=== PATIENT | female | born 1950 | race Caucasian/White ===

== ENCOUNTER 2018-01-13 11:34 | Emergency (ER) | payer BC, MEDICARE ==
--- NOTE | 2018-01-13 12:01 | UC ---
UC General HPI - HPI Summary HPI Summary: 67 yo female presents with weakness, dizziness, dysphagia, nausea, and vomiting over the last year, but worsening over the last 2 weeks. She tells me that within the last 2 weeks she feels that she cannot eat anything because it will get stuck in her throat and she will vomit it back up. Therefore she tells me she has lost >10lbs within the last 2 weeks due to not eating and vomiting. She also feels weak and dizzy with any activity. Reports feeling feverish and having an elevated temperature, but has not taken it with a thermometer. Denies SOB, chest pain, diarrhea, constipation, or dysuria. - History of Current Complaint Stated Complaint: FB IN THROAT NAUSEA BRUISING ON ARM RASH Time Seen by Provider: 01/13/18 12:00 Hx Obtained From: Patient Onset/Duration: Gradual Onset - Allergy/Home Medications Allergies/Adverse Reactions: Allergies Allergy/AdvReac Type Severity Reaction Status Date / Time No Known Allergies Allergy Verified 01/13/18 12:02 PMH/Surg Hx/FS Hx/Imm Hx Endocrine History: Dyslipidemia Respiratory History: COPD - Surgical History Surgical History: Yes Surgery Procedure, Year, and Place: HYSTERECTOMY, CHOLECYSTECTOMY - Family History Known Family History: Positive: Hypertension - Social History Lives: With Family Alcohol Use: Daily Alcohol Amount: 2 GLASSES WINE/DAY Substance Use Type: None Smoking Status (MU): Former Smoker - Immunization History Most Recent Tetanus Shot: UNSURE ( OF 09/06/15) Review of Systems Constitutional: Fever Skin: Negative Eyes: Negative ENT: Negative Respiratory: Negative Cardiovascular: Negative Gastrointestinal: Vomiting, Nausea, Other - Difficulty swallowing Neurovascular: Negative Musculoskeletal: Negative Neurological: Weakness Psychological: Negative All Other Systems Reviewed And Are Negative: Yes Physical Exam - Summary Physical Exam Summary: GENERAL: NAD. WDWN. No pain distress. SKIN: No rashes, sores, or open wounds. HEENT: Head: AT/NC Eyes: PERRLA. EOM intact. Conjunctiva clear without inflammation or discharge. Ears: Hearing grossly normal. TMs intact, no bulging, erythema, or edema. Nose: Nasal mucosa pink and moist. NTTP maxillary and frontal sinus. Throat: Posterior oropharynx without exudates, erythema, or tonsillar enlargement. Uvula midline. NECK: Supple. Nontender. No lymphadenopathy. CHEST: CTAB. No r/r/w. No accessory muscle use. Breathing comfortably and in no distress. CV: RRR. Without m/r/g. Pulses intact. Brisk cap refill. ABDOMEN: Soft. NTTP. No distention or guarding. No CVA tenderness. Bowel sounds present NEURO: Alert. CN II-XII grossly intact. PSYCH: Age appropriate behavior. Triage Information Reviewed: Yes Vital Signs: Vital Signs: Temp Pulse Resp BP Pulse Ox 98.7 F 47 18 146/91 97 01/13/18 11:51 01/13/18 11:51 01/13/18 11:51 01/13/18 11:51 01/13/18 11:51 Vital Signs Reviewed: Yes Course/Dx - Course Course Of Treatment: Prior to EKG, pt's hr manually was 45bpm. During EKG pt became anixous. EKG with 111bpm sinus tach with irregular rate, PACs, borderline prolonged QT, No ST elevations as read by Dr. Carter. She is having multiple instances of ectopy and PACs with prolonged QT - these findings are concerning for an electrolyte abnormality. I have advised pt to seek further evaluation in the ED with transfer via ambulance. Her and her were agreeable to this. An IV was started and NS begun. Left in stable condition via ambulance. Report called to Raymon FLYNN at 1245 in the ED. - Differential Dx - Multi-Symptom Provider Diagnoses: Abnormal EKG. Vomiting. Dysphagia Discharge - Sign-Out/Discharge Documenting (check all that apply): Patient Departure - Discharge Plan Condition: Stable Disposition: TRANS HIGHER LVL OF CARE FAC Referrals: No Primary Care Phys,NOPCP [Primary Care Provider] - - Billing Disposition and Condition Condition: STABLE Disposition: Trans Higher Lvl of Care Fac
[2018-01-13 12:02] VITALS: BP 146/91
[2018-01-13] MEDS ORDERED: NS 0.9% 1000 ML* 1,000 ML IV ONE (12:37)
== END 2018-01-13 13:05 | disposition short-term general hospital (02) ==
LOC: UCEAST 11:34
DX: R11.2 Nausea with vomiting, unspecified (principal); R13.10 Dysphagia, unspecified; R94.31 Abnormal electrocardiogram [ECG] [EKG]; J44.9 Chronic obstructive pulmonary disease, unspecified; R53.1 Weakness; R42 Dizziness and giddiness; R50.9 Fever, unspecified; Z87.891 Personal history of nicotine dependence
CPT/HCPCS: 93005; 96360; 99213; G0463

== ENCOUNTER 2018-01-13 13:27 | Observation (INO) | payer MEDICARE ==
[2018-01-13] MEDS ORDERED: ALPRAZolam TAB* 0.25 MG PO ONE (14:03)
--- NOTE | 2018-01-13 14:05 | ED ---
Complex/Multi-Sys Presentation - HPI Summary HPI Summary: This is Cj Attrobert documenting for attending Abdullahi Hogue This is Cj Griggs documenting for attending Abdullahi Smalls MD. Pt YESSENIA is a 67 y/o F c/o throat problems onset ~1 year ago. Assoc Sx: Acid reflux, inability to eat, depression, lightheaded, dizziness, SAMUEL, changes in sleep. Denies: CP and tightness. Has not eaten anything in the last 3 weeks and has lost ~30 lbs. Pt notes that it feels like there is a growth in her throat. Pt went to Urgent care before and was sent here with concerns about her heart. - History Of Current Complaint Chief Complaint: EDGeneral Time Seen by Provider: 01/13/18 13:58 Hx Obtained From: Patient, Family/Business Writer Onset/Duration: Gradual Onset, Lasting Weeks, Still Present Timing: Constant Associated Signs And Symptoms: Positive: Dizziness, Headache, Decreased Oral Intake - both solid/liquid, Other - acid reflux, lightheadedness.. Negative: Chest Pain - Allergies/Home Medications Allergies/Adverse Reactions: Allergies Allergy/AdvReac Type Severity Reaction Status Date / Time No Known Allergies Allergy Verified 01/13/18 12:02 Home Medications: Home Medications Ibuprofen TAB* [Advil TAB*] 200 mg PO Q6H PRN 01/13/18 [History Confirmed ] PMH/Surg Hx/FS Hx/Imm Hx Respiratory History: Reports: Hx Chronic Obstructive Pulmonary Disease (COPD) GI History: Reports: Hx Ulcer - stomach - Surgical History Surgery Procedure, Year, and Place: HYSTERECTOMY, CHOLECYSTECTOMY Infectious Disease History: No Infectious Disease History: Reports: Hx Hepatitis Denies: Traveled Outside the [place] in Last 30 Days - Family History Known Family History: Positive: Hypertension - Social History Occupation: Retired Lives: With Family Alcohol Use: Weekly Alcohol Amount: 2 GLASSES WINE/DAY Substance Use Type: Reports: None Smoking Status (MU): Former Smoker Review of Systems Positive: Other - inability to eat solid food Positive: Other - acid reflux Negative: Chest Pain, Other - chest tightness Positive: Headache Positive: Depressed All Other Systems Reviewed And Are Negative: Yes Physical Exam - Summary Physical Exam Summary: Constitutional: Well-developed, Well-nourished, Alert. (-) Distressed Skin: Warm, Dry HENT: Normocephalic; Atraumatic; resists exam of thyroid Eyes: Conjunctiva normal Neck: Musculoskeletal ROM normal neck. (-) JVD, (-) Stridor, (-) Tracheal deviation Cardio: Rhythm regular, rate normal, Heart sounds normal; Intact distal pulses; The pedal pulses are 2+ and symmetric. Radial pulses are 2+ and symmetric. (-) Murmur Pulmonary/Chest wall: Effort normal. (-) Respiratory distress, (-) Wheezes, (-) Rales Abd: Soft, (-), epigastric tenderness, (-) Distension, (-) Guarding, (-) Rebound Musculoskeletal: (-) Edema Lymph: (-) Cervical adenopathy Neuro: Alert, Oriented x3 Psych: Mood and affect Normal Triage Information Reviewed: Yes Vital Signs On Initial Exam: Initial Vitals Temp Pulse Resp BP Pulse Ox 98.1 F 115 16 138/97 96 01/13/18 13:29 01/13/18 13:29 01/13/18 13:29 01/13/18 13:29 01/13/18 13:29 Vital Signs Reviewed: Yes Diagnostics - Vital Signs Vital Signs Temp Pulse Resp BP Pulse Ox 01/13/18 13:29 98.1 F 115 16 138/97 96 - Laboratory Result Diagrams: 01/13/18 14:16 01/13/18 14:16 Lab Statement: Any lab studies that have been ordered have been reviewed, and results considered in the medical decision making process. - Radiology CXR Xray Interpretation: No Acute Changes - IMPRESSION: NORMAL CHEST. Radiology Interpretation Completed By: Radiologist Soft tissue neck XR Xray Interpretation: Positive (See Comments) - IMPRESSION: NO PLAIN RADIOGRAPHIC ABNORMALITIES OF THE SOFT TISSUES OF THE NECK. OSTEOARTHRITIS OF THE CERVICAL SPINE. Radiology Interpretation Completed By: Radiologist - EKG 1414 Cardiac Rate: Tachycardia - [address] Segment: Normal Discharge - Sign-Out/Discharge Documenting (check all that apply): Patient Departure - Discharge Plan Condition: Stable Disposition: ADMITTED TO [facility] Referrals: No Primary Care Phys,NOPCP [Primary Care Provider] - [facility] PHYSICIAN REFERRAL [Outside]
[2018-01-13] MEDS ORDERED: Ondansetron INJ* 2 MG/ML VIAL ONE (14:24)
[2018-01-13] MEDS ORDERED: Ondansetron INJ* 2 MG/ML VIAL IV ONE (14:48)
--- NOTE | 2018-01-13 14:48 | RAD ---
INDICATION: Globus sensation COMPARISON: June 01, 2004 TECHNIQUE: PA and lateral dual-energy views were obtained. FINDINGS: Bones/Soft Tissues: There are no acute bony findings. Cardiomediastinal: The cardiomediastinal silhouette is normal. Lungs: There are no infiltrates. Pleura: There are no pleural effusions. Other: None IMPRESSION: NORMAL CHEST.
--- NOTE | 2018-01-13 14:50 | RAD ---
INDICATION: Clinical presentation COMPARISON: None TECHNIQUE: 2 views the neck were obtained with soft tissue technique FINDINGS: There is degenerative change of the cervical spine at C5-C6 with disc space narrowing, marginal osteophyte formation, uncinate process spurring. There is a 2 mm anterolisthesis of C4-C5 which is likely on a degenerative basis. The prevertebral soft tissues and airway have a normal plain radiographic appearance. IMPRESSION: NO PLAIN RADIOGRAPHIC ABNORMALITIES OF THE SOFT TISSUES OF THE NECK. OSTEOARTHRITIS OF THE CERVICAL SPINE.
[2018-01-13 15:00] LABS: Hematocrit 44 % (35-47); Hemoglobin 15.7 g/dl (12.0-16.0); Mean Corpuscular HGB Conc 36 g/dl (31-36); Mean Corpuscular Hemoglobin 36 pg (27-31); Mean Corpuscular Volume 99 fL (80-97); Mean Platelet Volume 8.6 um3 (7.4-10.4); Platelet Count 296 10^3/ul (150-450); Red Blood Count 4.43 10^6/ul (4.00-5.40); Red Cell Distribution Width 14 % (10.5-15)
[2018-01-13] MEDS ORDERED: NS 0.9% 1000 ML* 1,000 ML IV ONE (16:00)
[2018-01-13] MEDS ORDERED: Metoclopramide IV* 5 MG/ML 2 ML VIAL IV SLOW PU ONE (16:23)
[2018-01-13] MEDS ORDERED: Iohexol 300* (CONTRAST) 10 ML SDV IV ONE (18:35)
[2018-01-13] MEDS ORDERED: Magnesium Sulfate IV* 2 GM in NS 0.9% 100 ML* 100 ML IVPB ONE (20:27)
[2018-01-13] MEDS: KCL 20 MEQ/100 ML IVPREMIX* 20 MEQ/100 ML BAG IV SCH (20:33)
[2018-01-13] MEDS: Heparin VIAL(*) 5000 UNITS/ML VIAL (FIVE THOUSAND) SUBCUT SCH (20:33)
[2018-01-13] MEDS: NS 0.9% 1000 ML* 1,000 ML IV SCH (20:33)
--- NOTE | 2018-01-13 21:28 | HP ---
HISTORY AND PHYSICAL: DATE OF ADMISSION: 01/13/18 PRIMARY CARE PROVIDER: None. ATTENDING PHYSICIAN: Dr. Manoj Davila * (dictated by Ban Mensah NP). CHIEF COMPLAINT: Throat swelling for 1 year, unable to eat for few weeks, and stomach upset. HISTORY OF PRESENT ILLNESS: Ms. Miller is a 67-year-old female with past medical history significant for stomach ulcers, which found to be secondary to NSAID use; hepatitis, she is unsure of the kind; hyperlipidemia; and COPD, who presented initially to Urgent Care with complaints of throat swelling x1 year and being unable to eat for over the last few weeks. Initially , the patient was reporting a 10-pound weight loss. While at Urgent Care, she had an EKG showing a sinus tachycardia and a rate of 111. Due to her symptoms, it was recommended she come to the emergency room for further evaluation. The patient states for approximately, she has felt as though she has a throat swelling. She states it feels as though it is inside of her throat. She feels that it has been gradual. She notices nothing that improves it, but it is gradually getting worse. She occasionally takes Prilosec. She reports a 30- pound weight loss in approximately 3 weeks. She is a former smoker with approximately a 40-year smoking history. She reports nausea for months. She has recently started having vomiting, but she describes as recurring after she has coughed in the last week. She believes that she has only had 1 small meal with regular food. She feels that now it is even difficult to get liquids to go down and stay down. She also reports constipation for the past few weeks. In general, she feels like her condition has worsened over the last week. She has felt as though she has had intermittent fevers at home for sometime now. She is unable to stay how long this has been, but she has not checked her temperature. She reports shortness of breath with exertion, abdominal discomfort. She reports in the past, she has had an EGD and a colonoscopy without acute findings other than the stomach ulcers during her GI bleed in the past. Due to her symptoms, she was transferred from Urgent Care to the emergency room for further evaluation. While in the emergency room, she underwent a soft tissue neck x-ray showing no abnormalities and osteoarthritis of her C-spine. She had a chest x-ray showing a normal chest x-ray. She had an EKG showing a sinus tachycardia, rate of 103. There is some minimal ST depression in V2 to V3 and lead II. I suspect this is rate related. She had TSH of 0.6. While in the emergency room, she was able to tolerate small sips of water that were difficult to get down. She denies any family history of throat or neck cancer or thyroid issues. The Hospitalists were asked to evaluate the patient for admission. PAST MEDICAL HISTORY: 1. Stomach ulcers, likely secondary to NSAID use. 2. Hepatitis, unknown type. 3. Hyperlipidemia. 4. COPD. PAST SURGICAL HISTORY: 1. Status post total abdominal hysterectomy and bilateral salpingo- oophorectomy. 2. Status post cholecystectomy. HOME MEDICATIONS: Include: 1. Ibuprofen 200 mg oral every 6 hours as needed for pain. 2. Prilosec 20 mg oral daily as needed for indigestion. ALLERGIES: No known drug allergies. FAMILY HISTORY: The patient had maternal uncles with a history of heart disease. She denies any family history of diabetes mellitus or cancer. She is unaware of her father's family history. SOCIAL HISTORY: She is a former smoker. She reports quitting 3 to 4 years ago. Prior to that, she has an approximately 40-year smoking history. She reports drinking 2 glasses of wine daily, but has not had a drink in approximately a week due to the difficulty with swallowing. She denies recreational drug use. Her , Víctor Harvey, will be her surrogate decision in the event she is unable to make decisions for herself. REVIEW OF SYSTEMS: I performed an 11-point review of systems. All the pertinent positives and negatives are mentioned in the history of present illness. The remaining review of systems are negative. PHYSICAL EXAMINATION GENERAL APPEARANCE: The patient is alert, pleasant, and appears to be in no acute distress. VITAL SIGNS: Temperature 98.1, heart rate 101, respiratory rate 17, O2 sat 96% on room air, blood pressure 130/81. HEENT: Normocephalic, atraumatic. Pupils are equal and reactive to light. Extraocular movements are intact. NECK: Supple. There is no lymphadenopathy noted. No thyroid enlargement noted. RESPIRATORY: There is no accessory muscle use. The lungs are clear to auscultation bilaterally. CARDIOVASCULAR: Regular rate and rhythm. S1, S2 present. There are no murmurs , rubs or gallops heard. ABDOMEN: Soft. Tender in the left upper quadrant and nondistended. There are hypoactive bowel sounds x4. EXTREMITIES: No lower extremity edema. DP and PT pulses are 2+ and symmetric. MUSCULOSKELETAL: There is no clubbing or cyanosis noted. The patient exhibits good strength in all extremities. NEUROLOGIC: The patient is alert and oriented x4. Cranial nerves II through XII are grossly intact. PSYCHOLOGICAL: The patient is calm and cooperative. SKIN: The patient has some dry slightly darker pigmented skin on her upper back and on her right forearm. The area on her forearm appears to be possible bruise. The area on her neck appears to be dry skin possibly secondary to a sun exposure. DIAGNOSTIC STUDIES/LABORATORY DATA: Sodium 139, potassium 3.2, chloride 96, CO2 25, BUN 10, creatinine 0.72, glucose 105. White blood cell count 8.0, hemoglobin 15.7, hematocrit 44, platelet count 296. TSH 0.60. EKG shows a sinus tachycardia, rate of 103. There is slight ST depression in V2 to V3, and lead 2. There is no previous EKG for comparison. Chest x-ray from today. Normal chest. Soft tissue neck x-ray from today. Radiologist's impression: No plain radiographic abnormalities of the soft tissues of the neck. Osteoarthritis of the cervical spine. IMPRESSION: Ms. Miller is a 67-year-old female with past medical history significant for stomach ulcers, hepatitis, hyperlipidemia, and chronic obstructive pulmonary disease, who presents to the emergency room with complaints of esophageal dysphagia and weight loss, and stomach upset for over the last year to a few weeks. She will be admitted as an observation for continued workup of her esophageal dysphagia. ASSESSMENT/PLAN: 1. Esophageal dysphagia. This could represent anything from esophageal stricture to a mass. She had a plain film neck x-ray showing no findings. The plan will be to get chest, abdomen, and pelvis CT with oral contrast to see if she is able to tolerate oral contrast to evaluate for any signs of malignancy or masses in her chest. Based off of the findings of the CT scan will help us determine further plans. If there are no acute findings, I recommend having GI see the patient in the morning for possible EGD. For now, the patient will be n.p.o. 2. Weight loss. Again, the patient reports a 30-pound weight loss over the last 3 weeks. She has not been eating very much at all for a few weeks secondary to her esophageal dysphagia and nausea. We will again get a CTA of her chest, abdomen, and pelvis to evaluate for malignancies. 3. Hypokalemia. We will give the patient IV replacement and add magnesium to the ER labs and replace if needed. 4. Fluids, electrolytes, and nutrition. The patient will be n.p.o. She will have IV fluids with normal saline at 100. 5. Code status. Full code. 6. DVT prophylaxis. She is at high risk and will have subcu heparin. 7. Disposition. Observation. TIME SPENT: Time spent for this admission was approximately 60 minutes, greater than half of that was spent with the patient and her discussing medications, past medical history, and the events leading up to her arrival today, performing a physical examination. The case has been reviewed with the attending, Dr. Davila, who agrees with the plan of care. BAN CHAPPELL, KAITLYNN [id number]/CPS #: [id number] HIM[facility]
[2018-01-13] MEDS ORDERED: Acetaminophen TAB* 325 MG PO PRN (23:49)
[2018-01-13] MEDS ORDERED: Acetaminophen TAB* 325 MG ONE (23:56)
[2018-01-14] MEDS: KCL 20 MEQ/100 ML IVPREMIX* 20 MEQ/100 ML BAG IV SCH ×2 (01:42→04:19)
[2018-01-14] MEDS: Heparin VIAL(*) 5000 UNITS/ML VIAL (FIVE THOUSAND) SUBCUT SCH ×2 (04:19→16:07)
[2018-01-14 05:55] LABS: Urine Appearance Clear; Urine Blood Negative (Negative); Urine Color Straw; Urine Ketones 1+ (Negative); Urine Protein Negative (Negative); Urine Specific Gravity 1.027 (1.010-1.030); Urine Urobilinogen Negative (Negative)
[2018-01-14 07:15] LABS: EGFR Non-African American 108.3 (>60)
--- NOTE | 2018-01-14 08:06 | RAD ---
INDICATION: Dysphagia, weight loss. COMPARISON: July 19, [address] TECHNIQUE: Multidetector CT images were obtained from the lung apices to the ischial tuberosities with 85 mL Omnipaque 300 IV contrast. Oral contrast administered. CHEST REPORT: Mild upper lung zone predominant paraseptal emphysema. Small calcified granuloma at the RIGHT lower lobe. Negative for pulmonary infiltrate, suspicious focal pulmonary lesions, pleural effusions, pneumothorax. Negative for thoracic lymphadenopathy. Negative for cardiomegaly or pericardial effusion. Normal diameter thoracic aorta with mild atherosclerotic plaque. Negative for suspicious thoracic osseous lesions. CHEST IMPRESSION: #. Emphysema. #. No acute intrathoracic disease evident. ABDOMEN PELVIS REPORT: LIVER / GALLBLADDER / PANCREAS / SPLEEN: Small region of focal fatty infiltration at the medial and lateral segments of the LEFT hepatic lobe flanking the fissure for the ligamentum teres a common location. No suspicious focal hepatic lesions or biliary dilatation. Post cholecystectomy. Unremarkable pancreas and spleen. ALIMENTARY TRACT: No suspicious abnormality of the upper GI, small bowel, or appendix. Moderate colonic diverticulosis without findings of acute diverticulitis. Mild circumferential mural thickening of the cecum and ascending colon without appreciable perienteric inflammatory change. Negative for pneumatosis. Negative for ascites or free air. Small fat-containing umbilical hernia without inflammatory change. MESENTERIC: Unremarkable. ADRENAL / GENITOURINARY: Normal adrenal glands. Unremarkable kidneys with symmetric nephrograms and pyelograms. Unremarkable nondilated ureters and urinary bladder. Post hysterectomy. Unremarkable adnexal regions. RETROPERITONEAL: Negative for lymphadenopathy. VASCULAR: Atherosclerotic plaque of normal diameter abdominal aorta and iliac arteries. Potential resulting hemodynamic significant stenosis at the RIGHT common iliac artery. Partial physiologic distention of the IVC. BONES: Negative for suspicious focal osseous lesions. SOFT TISSUE: Physiologic activity only. ABDOMEN PELVIS IMPRESSION: #. Post cholecystectomy and hysterectomy. #. Nonspecific mild circumferential mural thickening at the RIGHT colon. Consider inflammatory or infectious colitis. Moderate colonic diverticulosis without evidence for a focal region of acute diverticulitis. #. Negative for lymphadenopathy. #. Peripheral vascular disease. Negative for aneurysm of the abdominal aorta.
[2018-01-14] MEDS: NS 0.9% 1000 ML* 1,000 ML IV SCH (08:20)
[2018-01-14] MEDS ORDERED: Ondansetron INJ* 2 MG/ML VIAL IV PRN (08:39)
[2018-01-14] MEDS ORDERED: fentaNYL* 50 MCG/ML 2 ML VIAL (100 MCG VIAL) ONE (13:41)
[2018-01-14] MEDS ORDERED: Midazolam* 1 MG/ML 10 ML VIAL (10 MG) ONE (13:41)
[2018-01-14] MEDS ORDERED: Omeprazole CAP* 20 MG PO SCH (16:00)
--- NOTE | 2018-01-14 16:12 | PRO ---
DATE OF PROCEDURE: 01/14/2018 - ROOM #414 OPERATIVE PROCEDURE: Esophagogastroduodenoscopy to the third portion of the duodenum. SPACE SCHEDULER: Dr. Kaycee Bell. ANESTHESIA: 1. Midazolam 7 mg IV. 2. Fentanyl 100 mg IV. HISTORY OF PRESENT ILLNESS: Natacha is a pleasant, 67-year-old female who presents today with a long-standing history of gastroesophageal reflux disease and peptic ulcer disease with a history of significant NSAID use, weight loss, and difficulty swallowing. PREOPERATIVE DIAGNOSES: 1. Long-standing gastroesophageal reflux disease. 2. Weight loss. 3. NSAID use. 4. Difficulty swallowing. 5. History of bleeding peptic ulcer disease. POSTOPERATIVE DIAGNOSES: 1. Normal appearing proximal esophagus. 2. Mildly rigid mid and distal esophagus with biopsies to rule out eosinophilic esophagitis. 3. Few white exudates in the mid esophagus with brushings to rule out danelle esophagitis. 4. Severe distal esophagitis with ulcerations. 5. Distal esophageal stricture with endoscopic dilation and mild tearing. 6. 2.5 cm hiatal hernia. 7. Moderate pangastritis with erosions and biopsies from the antrum and body and CLOtest to rule out H. pylori. 8. Several clean based duodenal ulcers and erosions with duodenitis, status post biopsies. RECOMMENDATIONS: 1. Will follow-up with path and cytology results. 2. Will start the patient on PPI therapy 40 mg twice daily for six weeks, then decrease to once daily. 3. She will need a follow-up visit in our office in two to three weeks. 4. Avoid NSAID therapy. 5. Will need a repeat upper endoscopy with further dilation in six weeks once the patient's esophagitis has healed. 6. Findings and recommendations were discussed with patient's . PROCEDURE: Esophagogastroduodenoscopy was explained in detail to the patient. The risks, benefits, complications, alternatives, and possibilities of missed lesions were explained and understood. Complications included, but were not limited to reaction to anesthesia, aspiration, increased risk of bleeding, infection and perforation. All questions were answered. The patient demonstrated understanding of the conversation and informed consent was obtained. Next, the patient was brought to the endoscopy suite, placed in the left lateral recumbent position where blood pressure, cardiac, and oxygen monitors were applied. The patient was found to be a fit candidate for moderate anesthesia. After adequate IV sedation was achieved, a bite block was placed. Next, a standard adult Olympus endoscope was inserted per os under direct visualization to the distal esophagus where is distal esophageal stricture. The endoscope was able to traverse the stricture but they were was mild dilation and tearing of the stricture via the scope. The endoscope was further maneuvered to the first, second and third portion of the duodenum. There were several clean based ulcers seen, as well as erythema consistent with duodenitis. A few erosions were seen as well. Large forceps biopsies were obtained for tissue sampling. Further withdraw into the gastric lumen revealed several erosions, as well as moderate erythema throughout the entire gastric lumen consistent with gastritis. A CLOtest was performed to rule out H. pylori. Cold forceps biopsies were obtained from the antrum and body as well. On retroflexion, the patient had a loose gastric cardia sling. Further withdraw of the endoscope into the distal esophagus revealed a hiatal hernia from 37 cm to 34.5 cm from the incisors. Again there was a distal esophageal stricture seen. There was significant erythema and ulcerations seen in the distal esophagus consistent with esophagitis thus further dilation was not preformed at this time due to risk of perforation. Further withdrawal into the mid esophagus revealed a few white exudates due to possible danelle esophagitis vs eosinophilic esophagitis. Brushings were obtained of this area. The distal mid and proximal esophagus was noted to be slightly rigid with possible eosinophilic esophagitis. Cold forceps biopsies were obtained from the mid and proximal esophagus to rule out eosinophilic esophagitis. Air was then removed from the patient. Endoscope was removed from the patient. The patient tolerated the procedure well. There were no immediate complications. After a period of observation, the patient was transferred back to the medical floor for further care. Thank you, Magdalena Angeles NP and Dr. Davila, for allowing us to participate in the care of your patient. If you should have any further questions or concerns, please do not hesitate to contact us. [id number]/[facility] #: [id number] HIMA
[2018-01-14 19:09] VITALS: BP 149/88
--- NOTE | 2018-01-15 01:29 | CONS ---
CC: Dr. Davila; Dr. Kaycee Bell. * GASTROENTEROLOGY CONSULTATION: DATE OF CONSULTATION: 01/14/18. HOSPITAL PROVIDER: Dr. Davila. PRIMARY CARE PROVIDER: None. REASON FOR CONSULTATION: Weight loss, dysphagia. HISTORY OF PRESENT ILLNESS: Natacha is a very pleasant 67-year-old female who presents today with a past medical history of peptic ulcer disease, COPD, and significant NSAID use. Patient presented to the emergency room with complaints of dysphagia for over 1 year that has been worsening over the last few weeks. She also admits to a 10-pound weight loss over these last few weeks due to poor appetite and dysphagia. She denies odynophagia, hematemesis, melena or hematochezia. She does take Prilosec over the counter intermittently and is a former smoker. She does admit to being constipated over the last few weeks due to poor oral intake, but denies any diarrhea, fevers, shortness of breath, chest pain. Her last upper endoscopy was [place] in [address] Huizar revealing an active peptic ulcer. She also had a colonoscopy back in 2002 revealing gilmore-diverticulosis and was otherwise normal. She has been noncompliant with follow-up and has also been taking significant amount of NSAIDS for chronic aches and pains. Gastroenterology was consulted for further evaluation. REVIEW OF SYSTEMS: Review of systems on a 14-point scale has been reviewed. All pertinent positives and negatives noted above in the HPI. PAST MEDICAL HISTORY: 1. Peptic ulcer disease secondary to NSAID use. 2. Hyperlipidemia. 3. COPD. PAST SURGICAL HISTORY: 1. Total abdominal hysterectomy and bilateral salpingo-oophorectomy. 2. Cholecystectomy. HOME MEDICATIONS: 1. Ibuprofen 200 mg every 6 hours as needed for pain. 2. Prilosec 20 mg daily as needed for indigestion. ALLERGIES: No known drug allergies. FAMILY HISTORY: Denies any history of gastrointestinal malignancy. SOCIAL HISTORY: She quit smoking 3 to 4 years ago, has a 50-twga-fkwi history. She admits to drinking 2 glasses of wine daily. Denies recreational drug use. PHYSICAL EXAMINATION: Vital Signs: Temperature 98.3, heart rate 98, respirations 16, oxygenation 97% on room air, blood pressure 149/88. Generally , the patient is alert and oriented x3, in no acute distress, well-nourished. HEENT: Normocephalic, atraumatic. Extraocular muscles are intact, anicteric sclerae bilaterally. Cardiovascular Exam: Regular rate and rhythm. Pulmonary Exam: Clear to auscultation bilaterally. Abdomen: Positive bowel sounds, soft , nontender, nondistended. No rebound, guarding or rigidity. Extremities: No clubbing, cyanosis, or edema. Neurologic: Patient is alert and oriented x3. No gross focal deficits are appreciated. LABORATORY AND DIAGNOSTICS: WBC is 8.8, hemoglobin 15.7, hematocrit 44, platelets 296. Sodium 141, potassium 3.7, chloride 104, CO2 24, anion gap 13, BUN 6, creatinine 0.56, glucose 78, calcium 8.8, magnesium 2.2, total bilirubin 0.6, AST 42, ALT 32, alkaline phosphatase 116, total protein 6.8. TSH 0.60, free T4 1.12. ASSESSMENT AND PLAN: Natacha is a very pleasant 67-year-old female who presents with a past medical history of NSAID-induced peptic ulcer disease and COPD who presented to the emergency room with complaints of worsening dysphagia and weight loss in the setting of significant ibuprofen use and previous history of PUD from NSAIDs. Given her current symptoms, it is reasonable to perform an upper endoscopy to further evaluate for possible esophageal strictures, Schatzki 's ring versus peptic ulcer disease, esophagitis as well as esophageal tumor. We will maintain patient's NPO status and perform an upper endoscopy today with biopsies. She is currently on a PPI therapy daily and encouraged avoidance of NSAID use given significant peptic ulcer disease in the past. Further recommendations will be provided as the patient's clinical course progresses. Case was discussed with primary team. Thank you Dr. Davila for allowing us to participate in the care of your patient. If you should have any further questions or concerns, please do not hesitate to contact us. [id number]/[facility] #: [id number] HIMA
--- NOTE | 2018-01-15 02:19 | CONS ---
DICTATION ENDS ABRUPTLY GASTROENTEROLOGY CONSULTATION: DATE OF CONSULT: 01/14/18 HOSPITAL PROVIDER: Dr. Davila. REASON FOR CONSULT: Epigastric pain and difficulty swallowing, weight loss. HISTORY OF PRESENT ILLNESS: Natacha is a very pleasant 67-year-old female with a previous history of bleeding, peptic ulcer disease in the past, heavy NSAID use and COPD, who presented to [facility] ER with complaints of difficulty swallowing over the last few weeks. She admits to a 10-pound weight loss over these last few weeks due to poor appetite and current symptoms. She denies odynophagia, but does admit to dysphagia. She takes intermittently Prilosec therapy [id number]. She does admit to occasional vomiting and intermittent coughs and frequent nausea. She denies chest pain, shortness of breath. She also denies hematemesis, melena or hematochezia. She had a colonoscopy back on 08/12/[address] Huizar, which was relatively unremarkable besides diverticulosis. She also had an upper endoscopy back in 1999 revealing NSAID-induced potential gastritis. DICTATION ENDS ABRUPTLY HERE [id number]/[facility] #: [id number] MTDD
--- NOTE | 2018-01-15 13:09 | DS ---
DISCHARGE SUMMARY: DATE OF ADMISSION: 01/13/18 DATE OF DISCHARGE: 01/14/18 PRIMARY CARE PROVIDER: WANDER Parker. She has an appointment on 01/20. This will be a new patient. ATTENDING PHYSICIAN: Dr. Manoj Davila * (dictated by Magdalena Angeles NP). PRIMARY DIAGNOSES: 1. Gastric ulcer. 2. Gastritis. 3. Esophageal stricture. SECONDARY DIAGNOSES: 1. Hyperlipidemia. 2. Hepatitis, unknown type. 3. History of stomach ulcers. DISCHARGE MEDICATIONS: New medications: Pantoprazole 40 mg p.o. b.i.d. Continued home medications: Acetaminophen 650 mg q.6 hours as needed for pain. STUDIES COMPLETED WHILE IN THE HOSPITAL: She had a chest x-ray on 01/13/18. Radiologist's impression: Normal chest. She had soft tissues of the neck x-ray. Radiologist's impression: No plain radiographic abnormalities of the soft tissue of the neck. Osteoarthritis of the cervical spine. She had a CT of the abdomen and pelvis. Radiologist's impression: Chest: 1. Emphysema. 2. No acute intrathoracic diseases evident. Abdomen: 1. Postcholecystectomy and hysterectomy. 2. Nonspecific mild circumferential mural thickening of the right colon, consider inflammatory or infectious colitis. Moderate colonic diverticulosis without evidence of focal region of acute diverticulitis. 3. Negative for lymphadenopathy. 4. Peripheral vascular disease. 5. Negative for aneurysm of the abdominal aorta. HISTORY OF PRESENT ILLNESS AND HOSPITAL COURSE: Ms. Miller is a 67-year- old female with a past medical history significant for stomach ulcers, which was found to be secondary to NSAID use; hepatitis unsure what kind; hyperlipidemia; COPD, who presented initially to the Urgent Care with complaints of throat swelling x1 year and being unable to eat for over the last few weeks. Initially, the patient reported a 10-pound weight loss. While at Urgent Care, she had an EKG showing tachycardia at a rate of 111. Due to her symptoms, it was recommended she come to the emergency room for further evaluation. The patient states that for approximately 1 year, she has had some throat swelling and states that it feels as though it is the inside of her throat. She states that this gradually became worse. She reports a 30-pound weight loss in approximately 3 weeks. She is a former smoker with approximately a 66-dusy-lfkvxbt history. She reports nausea times months. She recently started vomiting, but she describes as this recurring after she coughs. She does believe that she had 1 small meal with regular food and now it is even difficult for her to get liquids down. She also reports some constipation over the past few weeks. In general, she reported that she felt that her conditions have worsened over the last week. Due to her symptoms, she was transferred from Urgent Care to the emergency room for further evaluation. While in the emergency room, she underwent a soft tissue neck x-ray, which showed no abnormalities and showed osteoarthritis of the C-spine. She had a chest x-ray, which was normal. An EKG showing sinus tachycardia at a rate of 103. While in the emergency room, she was able to tolerate small sips of water , but reports that they were difficult to get down. We were asked by the emergency room due to her symptoms to see and evaluate her for admission. During her hospitalization, she was monitored on telemetry. She continued to have the sinus rhythm on the monitor and the rate of 90s to 100s. Sinus rhythm to sinus tachycardia with PACs. She did have an upper endoscopy with Dr. Bell , which showed normal- appearing proximal esophagus, mildly rigid mid and distal esophagus with biopsies to rule out eosinophilic esophagitis. There were few exudates in the mid esophagus with brushing for danelle esophagitis, severe distal esophagitis with ulceration, distal esophageal stricture with endoscope dilation and mild tearing, 2.5-cm hiatal hernia, moderate pangastritis with erosions and biopsies from the antrum and body, and CLOtest to rule out H. pylori. Several clean-based duodenal ulcers and erosions with duodenitis, status post biopsies. Post upper endoscopy, the patient states that her swallowing feels improved. She feels that she is able to tolerate fluids better. REVIEW OF SYSTEMS: The patient denies any chest pain or shortness of breath. Denies any nausea, vomiting, or diarrhea. She does report some difficulty swallowing prior to the EGD. She denies any dizziness. She is alert and oriented x3. A review of 14 systems was completed and all others were negative. PHYSICAL EXAMINATION: Vital Signs: Temperature was 98.3, heart rate was 98, respirations 16, O2 saturation was 97% on room air, blood pressure 149/88. General Appearance: The patient is pleasant. She appears comfortable, resting in her bed. HEENT: Head is atraumatic, normocephalic. Pupils are equal and reactive. Neck is supple. Respiratory: Lungs are clear to auscultation bilaterally. No wheezes, rales, or rhonchi. Cardiac: S1, S2. There is regular rate and rhythm. There are no murmurs, rubs, or gallops. Abdomen is soft. She does have some tenderness to the upper epigastric region with palpation. Bowel sounds are present x4. Extremities: There is no lower extremity edema. DP and PT pulses are +2 bilaterally and symmetric. Musculoskeletal: There is no clubbing or cyanosis. The patient has 5/5 strength in all 4 extremities. Neurologic: She is awake, alert, and oriented x4. There are no gross neuro focal deficits. Skin is intact. At this time, Ms. Miller is stable for discharge home. DISCHARGE PLAN: Ms. Miller will be discharged home. Activity as tolerated. She was instructed not to drive for 24 hours as she did receive sedation today and not to make any legally binding decisions, advised not to swim or operate any heavy machinery. 1. Esophageal stricture. I feel that her feeling of throat swelling x1 year is related to the esophageal stricture. She had this dilated with endoscope today with mild tearing. The patient does report improved swallowing post upper endoscopy. She should follow up with Gastroenterology in 2 to 3 weeks. 2. Gastritis and gastric ulceration. I suspect this is related to NSAID use. She should discontinue the use of ibuprofen and NSAIDs. I will place her on Protonix 40 mg p.o. b.i.d. She should follow up with Gastroenterology in 2 to 3 weeks. The patient was advised to return to the emergency room if she developed vomiting of blood, or black or tarry stools. The patient verbalized understanding. The patient was also advised to refrain from eating spicy, greasy, acidic foods, as this can continue to cause gastric irritation. She was also advised not to drink any alcohol. 3. She did have hypokalemia. Her potassium level was 3.7 on the day of discharge. It was 3.2 on day of admission. It has improved with potassium replacement. 4. Hypomagnesium. She was 1.7 on admission and 2.2 on the day of discharge after replacement. FOLLOWUP: She should follow up with Gastroenterology in 2 to 3 weeks. She has an appointment with a new primary care provider, Julita Pak, on 01/20/18 at 9:45. She should follow up with Julita Pak as scheduled. The patient was instructed to return to the emergency room for any vomiting of blood, black or tarry stools or bright red blood from the rectum, chest pain or shortness of breath or any other concerning symptoms. The patient verbalized understanding. This is a summarization of her hospitalization. For further details, please see the entire medical record. TIME SPENT: Time spent on this discharge was approximately 60 minutes, greater than half that time was spent discussing discharge plans and instructions with the patient and her . CONDITION ON DISCHARGE: Stable. I have discussed this with my attending, Dr. Manoj Davila; he is in agreement with my plan. MAGDALENA ANGELES, KAITLYNN [id number]/[facility] #: [id number] Addendum: Patient called 01/15/18 stating that she was having nausea and vomiting. Prescription for Zofran and Carafate suspension sent to her pharmacy. Patient was advised again if she was unable to keep fluids down that she would need to return to the Emergency Room. HIMA
== END 2018-01-14 19:00 | disposition home or self-care (01) ==
LOC: ED 13:27 → MED 18:18
PROVIDERS: ADMIT Internal Medicine; ATTEND Internal Medicine
DX: K25.9 Gastric ulcer, unspecified as acute or chronic, without hemorrhage or perforation (principal); K29.70 Gastritis, unspecified, without bleeding; K22.2 Esophageal obstruction; E78.5 Hyperlipidemia, unspecified; K75.9 Inflammatory liver disease, unspecified; K21.9 Gastro-esophageal reflux disease without esophagitis; Z87.11 Personal history of peptic ulcer disease; R42 Dizziness and giddiness; R51 Headache; Z87.891 Personal history of nicotine dependence; F32.9 Major depressive disorder, single episode, unspecified; R63.4 Abnormal weight loss
CPT/HCPCS: 36415; 70360; 71045; 71260; 74177; 80048; 80053; 81003; 83735; 84439; 84443; 85027; 87077; 87102; 93005; 96374; 96375; 99156; 99157; 99284; A9270-GY; G0378; J1644; J2250; J2405; J2765; J3010; J3475; J3480; Q9967

== ENCOUNTER 2018-01-17 09:05 | Emergency (ER) | payer MEDICARE ==
[2018-01-17] MEDS ORDERED: Pantoprazole IV* 40 MG IV ONE (09:56)
[2018-01-17] MEDS ORDERED: NS 0.9% 1000 ML* 1,000 ML IV SCH (10:00)
--- NOTE | 2018-01-17 10:03 | ED ---
Complex/Multi-Sys Presentation - HPI Summary HPI Summary: This is saroj Messer documenting for attending Dr. Jodie Bush This patient is a 68 year old F presenting to [facility] accompanied by her with a chief complaint of esophageal ulcers since 01/13, when she was admitted [place] [facility] [place]. She endorses dysphagia, and that the GI doctor couldnt dilate fully because of all the other ulcers. She states that she cannot eat any solid food; her only intake since her discharge 01/14 has been water. She endorses emesis every 3 hours, nausea, and abd pain. Pt denies CP. She was taking Zofran for nausea, which was minimally effective. PMHx esophageal ulcers. - History Of Current Complaint Chief Complaint: EDAbdPain Time Seen by Provider: 01/17/18 09:43 Hx Obtained From: Patient Onset/Duration: Gradual Onset, Lasting Days, Still Present Timing: Constant Severity Currently: Moderate Severity Initially: Moderate Location: Pain At: - esophagus Aggravating Factor(s): any intake except minimal amounts of water. Alleviating Factor(s): zofran, minimally Associated Signs And Symptoms: Positive: Nausea, Vomiting, Abdominal Pain, Decreased Oral Intake. Negative: Chest Pain, Fever Related History: Recent Hospitalization - Allergies/Home Medications Allergies/Adverse Reactions: Allergies Allergy/AdvReac Type Severity Reaction Status Date / Time No Known Allergies Allergy Verified 01/13/18 12:02 PMH/Surg Hx/FS Hx/Imm Hx Endocrine/Hematology History: Denies: Hx Diabetes Cardiovascular History: Reports: Hx Hypercholesterolemia Denies: Hx Hypertension Respiratory History: Reports: Hx Chronic Obstructive Pulmonary Disease (COPD) GI History: Reports: Hx Ulcer - stomach Sensory History: Reports: Hx Contacts or Glasses Denies: Hx Legally Blind, Hx Hearing Aid Opthamlomology History: Reports: Hx Contacts or Glasses Denies: Hx Legally Blind EENT History: Denies: Hx Deafness Psychiatric History: Reports: Hx Anxiety, Hx Depression - Surgical History Surgery Procedure, Year, and Place: HYSTERECTOMY, CHOLECYSTECTOMY Infectious Disease History: No Infectious Disease History: Reports: Hx Hepatitis Denies: Traveled Outside the US in Last 30 Days - Family History Known Family History: Positive: Hypertension - Social History Lives: With Family Alcohol Use: Daily Alcohol Amount: 2 GLASSES WINE/DAY Substance Use Type: Reports: None Smoking Status (MU): Former Smoker Type: Cigarettes Have You Smoked in the Last Year: No Review of Systems Negative: Fever Positive: Sore Throat, Other - dyphagia Negative: Chest Pain Positive: Abdominal Pain, Vomiting, Nausea Positive: no symptoms reported All Other Systems Reviewed And Are Negative: Yes Physical Exam - Summary Physical Exam Summary: Appearance: Well appearing, no pain distress Skin: warm, dry, reflects adequate perfusion Head/face: normal Eyes: EOMI, JYOTI ENT: normal Neck: supple, non-tender Respiratory: CTA, breath sounds present Cardiovascular: RRR, pulses symmetrical Abdomen: non-tender, soft Bowel: present Musculoskeletal: normal, strength/ROM intact Neuro: normal, sensory motor intact, A&Ox3 Triage Information Reviewed: Yes Vital Signs On Initial Exam: Initial Vitals Temp Pulse Resp BP Pulse Ox 97.0 F 105 16 140/100 98 01/17/18 09:09 01/17/18 09:09 01/17/18 09:09 01/17/18 09:09 01/17/18 09:09 Vital Signs Reviewed: Yes Diagnostics - Vital Signs Vital Signs Temp Pulse Resp BP Pulse Ox 01/17/18 09:33 104 17 123/97 98 01/17/18 09:32 93 99 01/17/18 09:09 97.0 F 105 16 140/100 98 - Laboratory Result Diagrams: 01/17/18 10:11 01/17/18 10:11 Lab Statement: Any lab studies that have been ordered have been reviewed, and results considered in the medical decision making process. - Radiology CXR Xray Interpretation: No Acute Changes Radiology Interpretation Completed By: Radiologist - No active disease. Dr. Feliciano has reviewed this report. - EKG 0958 Cardiac Rate: Tachycardia - 102 EKG Rhythm: Sinus Tachycardia ST Segment: Non-Specific Ectopy: None EKG Interpretation: non-specific ST changes. Re-Evaluation - Re-Evaluation First Eval Re-Evaluation Time: 10:45 Change: Unchanged Comment: Discussed transfer to [facility] or [facility], family and patient unhappy, will make decision in a few minutes. Second Eval Re-Evaluation Time: 11:14 Change: Unchanged Comment: Still want to think about it, they want pt to be admitted here. Complex Multi-Symp Course/Dx Course Of Treatment: A 68-year-old F presents to the ED with a CC of esophageal ulcers for 4 days. (+) dysphagia, emesis every 3 hours, nausea, abd pain. (-) chest pain, any food intake. PMHx esophageal ulcers, admission 4 days ago, discharge 3 days ago, no food, only water intake since. A CXR reveals no active disease. An EKG reveals sinus tachycardia at 102 bpm and non-specific ST- changes. In the ED course, pt was given nl saline, KCl, and protonix. Advised pt to go [place] for GI consult but pt refused, wants to leave AMA. 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 Discharge - Sign-Out/Discharge Documenting (check all that apply): Patient Departure - AMA - Discharge Plan Condition: Fair Disposition: AGAINST MEDICAL ADVICE Patient Education Materials: Peptic Ulcer (ED), Esophageal Stricture (ED), Dysphagia (ED), Esophagitis (ED) Referrals: [facility] [Provider Group] - 3 Days Additional Instructions: Return to emergency department for any new or worsening symptoms. Please go to [place] for a GI treatment consult. - Billing Disposition and Condition Condition: FAIR Disposition: Against Medical Advice
[2018-01-17 10:26] LABS: ABS Basophils 0 10^3/ul (0-0.2); ABS Eosinophils 0 10^3/ul (0-0.6); ABS Lymphocytes 0.8 10^3/ul (1.0-4.8); ABS Monocytes 1.2 10^3/ul (0-0.8); ABS Neutrophils 8.4 10^3/ul (1.5-7.7); ABS Nucleated RBC 0 10^3/ul; Eosinophil % 0.1 % (0-6); Hematocrit 41 % (35-47); Hemoglobin 14.5 g/dl (12.0-16.0); Lymphocyte % 7.7 % (25-47); Mean Corpuscular HGB Conc 36 g/dl (31-36); Mean Corpuscular Hemoglobin 35 pg (27-31); Mean Corpuscular Volume 98 fL (80-97); Mean Platelet Volume 8.3 um3 (7.4-10.4); Nucleated Red Blood Cells % 0; Platelet Count 356 10^3/ul (150-450); Red Blood Count 4.16 10^6/ul (4.00-5.40); Red Cell Distribution Width 14 % (10.5-15); White Blood Count 10.4 10^3/ul (3.5-10.8)
--- NOTE | 2018-01-17 10:38 | RAD ---
INDICATION: Chest pain COMPARISON: Chest x-ray January 13, 2018 TECHNIQUE: An AP portable view obtained at 1015 hours is submitted. FINDINGS: Bones/Soft Tissues: There are no acute bony findings. Cardiomediastinal: The cardiomediastinal silhouette is normal. Lungs: There are no infiltrates. There is old granulomatous disease. Pleura: There are no pleural effusions. Other: None IMPRESSION: NO ACTIVE DISEASE
[2018-01-17 10:40] LABS: EGFR Non-African American 75.9 (>60)
[2018-01-17] MEDS ORDERED: KCL 20 MEQ/100 ML IVPREMIX* 20 MEQ/100 ML BAG IV ONE (10:45)
[2018-01-17 10:48] LABS: INR 0.87 (0.77-1.02)
[2018-01-17] MEDS ORDERED: Ondansetron INJ* 2 MG/ML VIAL IV ONE (11:58)
[2018-01-17 12:50] VITALS: BP 162/90
== END 2018-01-17 12:58 | disposition left against medical advice (07) ==
LOC: ED 09:05
DX: K22.2 Esophageal obstruction (principal); K22.10 Ulcer of esophagus without bleeding; R13.10 Dysphagia, unspecified; K20.9 Esophagitis, unspecified; E78.00 Pure hypercholesterolemia, unspecified; Z53.21 Procedure and treatment not carried out due to patient leaving prior to being seen by health care provider
CPT/HCPCS: 36415; 71045; 80053; 83605; 83690; 84484; 85025; 85610; 85730; 93005; 96361; 96374; 96375; 99283; J2405; J3480

== ENCOUNTER 2018-01-19 08:20 | Inpatient (IN) | payer MEDICARE ==
[2018-01-19] MEDS ORDERED: Ondansetron INJ* 2 MG/ML VIAL IV ONE (09:09)
[2018-01-19] MEDS ORDERED: Pantoprazole IV* 40 MG IV ONE (09:09)
[2018-01-19] MEDS: NS 0.9% 1000 ML* 1,000 ML IV ONE (09:26)
--- NOTE | 2018-01-19 09:31 | ED ---
Throat Pain/Nasal Congestion - HPI Summary HPI Summary: This is saroj Restrepo documenting for attending Dr. Terrance Hurst MD. This patient is a 68 year old F presenting to [facility] accompanied by a male with a chief complaint of worsening throat pain accompanied by vomiting due to ulcers that started 5 days ago. Pt has already come to [facility] three times before this visit. The patient rates the pain 3/10 in severity. Patient reports nausea , vomiting, difficulty eating and drinking, and abd pain. Pt reports that she hasnt had anything to eat or drink in a week and she cannot take her medication. Pts reports that she couldnt be admitted on Friday because there was no GI doctor tourist information assistant, and that they should come in today ( Friday) to be admitted. Pt is not taking ibuprofen. - History of Current Complaint Chief Complaint: EDThroatPain Time Seen by Provider: 01/19/18 08:25 Hx Obtained From: Patient Onset/Duration: Sudden Onset Severity: Moderate - Allergies/Home Medications Allergies/Adverse Reactions: Allergies Allergy/AdvReac Type Severity Reaction Status Date / Time No Known Allergies Allergy Verified 01/13/18 12:02 PMH/Surg Hx/FS Hx/Imm Hx Endocrine/Hematology History: Denies: Hx Diabetes Cardiovascular History: Reports: Hx Hypercholesterolemia Denies: Hx Hypertension Respiratory History: Reports: Hx Chronic Obstructive Pulmonary Disease (COPD) GI History: Reports: Hx Ulcer - stomach Sensory History: Reports: Hx Contacts or Glasses Denies: Hx Legally Blind, Hx Deafness, Hx Hearing Aid Opthamlomology History: Reports: Hx Contacts or Glasses Denies: Hx Legally Blind Psychiatric History: Reports: Hx Anxiety, Hx Depression - Surgical History Surgery Procedure, Year, and Place: HYSTERECTOMY, CHOLECYSTECTOMY Infectious Disease History: No Infectious Disease History: Reports: Hx Hepatitis Denies: Traveled Outside the US in Last 30 Days - Family History Known Family History: Positive: Hypertension - Social History Alcohol Use: Daily Alcohol Amount: 2 GLASSES WINE/DAY Substance Use Type: Reports: None Smoking Status (MU): Former Smoker Type: Cigarettes Have You Smoked in the Last Year: No Review of Systems Negative: Fever Positive: Sore Throat - throat ulcers Positive: Abdominal Pain, Diarrhea, Nausea, Other - difficulty eating and drinking All Other Systems Reviewed And Are Negative: Yes Physical Exam - Summary Physical Exam Summary: Appearance: The patient is well-nourished in no acute distress and in no acute pain. Skin: The skin is warm and dry and skin color reflects adequate perfusion. HEENT: The head is normocephalic and atraumatic. The pupils are equal and reactive. The conjunctivae are clear and without drainage. Nares are patent and without drainage. Mouth reveals moist mucous membranes. The external ears are intact. The ear canals are patent and without drainage. The tympanic membranes are intact. Neck: The neck is supple with full range of motion and non-tender. There are no carotid bruits. There is no neck vein distension. Respiratory: Chest is non-tender. Lungs are clear to auscultation and breath sounds are symmetrical and equal. Cardiovascular: Heart is regular rate and rhythm. There is no murmur or rub auscultated. There is no peripheral edema and pulses are symmetrical and equal. Abdomen: The abdomen is soft. Diffusely tender. There are normal bowel sounds heard in all four quadrants and there is no organomegaly palpated. Musculoskeletal: There is no back tenderness noted. Extremities are non-tender with full range of motion. There is good capillary refill. There is no peripheral edema or calf tenderness elicited. Neurological: Patient is alert and oriented to person, place and time. The patient has symmetrical motor strength in all four extremities. Cranial nerves are grossly intact. Deep tendon reflexes are symmetrical and equal in all four extremities. Psychiatric: The patient has an appropriate affect and does not exhibit any anxiety or depression. Triage Information Reviewed: Yes Vital Signs On Initial Exam: Initial Vitals Temp Pulse Resp BP Pulse Ox 98 F 90 16 156/83 99 01/19/18 08:23 01/19/18 08:23 01/19/18 08:23 01/19/18 08:23 01/19/18 08:23 Vital Signs Reviewed: Yes Diagnostics - Vital Signs Vital Signs Temp Pulse Resp BP Pulse Ox 01/19/18 08:35 100 97 01/19/18 08:34 99 111/91 90 01/19/18 08:23 98 F 90 16 156/83 99 - Laboratory Result Diagrams: 01/19/18 09:17 01/19/18 10:17 Lab Statement: Any lab studies that have been ordered have been reviewed, and results considered in the medical decision making process. Re-Evaluation - Re-Evaluation First Eval Re-Evaluation Time: 10:40 Change: Improved Comment: Pt is feeling better EENT Course/Dx - Course Course Of Treatment: Ms. Miller presented complaining that the cause of the ulcers in her throat she was unable to eat. She has an aspect of nausea after she eats that is new since her admission last week. I can't tell whether she is unable to swallow again because of her restriction in her esophagus or whether this is a new nausea and vomiting problem. Her labs weren't that bad but the hospitalist were asked to evaluate her for admission and possible rescoping. She did feel better after a liter of saline and Zofran. - Diagnoses Provider Diagnoses: Dysphagia - Provider Notifications Discussed Care Of Patient With: Carmella Ramey Time Discussed With Above Provider: 10:55 Instructed by Provider To: Admit As Inpatient Discharge - Sign-Out/Discharge Documenting (check all that apply): Patient Departure - Admmit - Discharge Plan Condition: Good Disposition: ADMITTED TO [facility] Referrals: [facility]ICIAN REFERRAL [Outside] Additional Instructions: RETURN TO THE EMERGENCY DEPARTMENT FOR CHANGING OR WORSENING SYMPTOMS - Billing Disposition and Condition Condition: GOOD Disposition: Admitted to [facility]
[2018-01-19 09:33] LABS: ABS Basophils 0.1 10^3/ul (0-0.2); ABS Eosinophils 0 10^3/ul (0-0.6); ABS Lymphocytes 0.9 10^3/ul (1.0-4.8); ABS Monocytes 1.3 10^3/ul (0-0.8); ABS Neutrophils 8.5 10^3/ul (1.5-7.7); ABS Nucleated RBC 0 10^3/ul; Eosinophil % 0.2 % (0-6); Hematocrit 41 % (35-47); Hemoglobin 14.8 g/dl (12.0-16.0); Lymphocyte % 8.5 % (25-47); Mean Corpuscular HGB Conc 36 g/dl (31-36); Mean Corpuscular Hemoglobin 35 pg (27-31); Mean Corpuscular Volume 98 fL (80-97); Mean Platelet Volume 8.1 um3 (7.4-10.4); Nucleated Red Blood Cells % 0.1; Platelet Count 334 10^3/ul (150-450); Red Blood Count 4.22 10^6/ul (4.00-5.40); Red Cell Distribution Width 13 % (10.5-15); White Blood Count 10.9 10^3/ul (3.5-10.8)
[2018-01-19 09:52] LABS: EGFR Non-African American 87.8 (>60)
[2018-01-19] MEDS ORDERED: KCL 20 MEQ/100 ML IVPREMIX* 20 MEQ/100 ML BAG IV ONE ×3 (11:19→16:30)
[2018-01-19 11:42] LABS: Urine Appearance Clear; Urine Blood Negative (Negative); Urine Color Yellow; Urine Ketones 2+ (Negative); Urine Protein Negative (Negative); Urine Specific Gravity 1.006 (1.010-1.030); Urine Urobilinogen Negative (Negative)
[2018-01-19] MEDS: NS 0.9% 1000 ML* 1,000 ML IV SCH (13:19)
[2018-01-19] MEDS: Morphine INJ* 2 MG/ML 1 ML SYRINGE (TWO MG - NEW SYRINGE VERSION) IV PRN ×2 (13:34→21:26)
[2018-01-19] MEDS: PROCHLORPERAZINE INJ 5 MG/ML 2 ML VIAL IV PRN ×2 (13:34→19:50)
--- NOTE | 2018-01-19 14:06 | CONS ---
CC: Dr. Novoa * CONSULTATION REPORT: DATE OF CONSULT: 01/19/18, pt seen in the Emergency Room prior to her being admitted to the hospital REQUESTING PHYSICIAN: Dr. Novoa. INDICATION: Nausea, vomiting, and abdominal pain. NARRATIVE: Ms. Miller is a 68-year-old female, who was discharged from [facility] this past Friday after a stay for the same. At that time, she underwent an upper endoscopy with Dr. Bell, which revealed a normal- appearing proximal esophagus, mildly rigid mid and distal esophagus with biopsies to rule out eosinophilic esophagitis. The biopsies are pending at this point. A few white exudates in the mid esophagus with brushings to rule out danelle esophagitis. Again, the biopsies are still pending. Severe distal esophagitis with ulcerations, distal esophageal stricture with endoscopic dilation and mild tearing, 2.5-cm hiatal hernia, pangastritis, duodenal ulcers, status post biopsies. All of the biopsies are pending at this time. She was started on twice-a-day proton pump inhibitor in addition to Carafate. That night she was feeling better and was discharged to home. The patient states she went home and by the next day, she was feeling back to her typical lousy self. She was having difficulty swallowing, was having severe pain. She did come to the emergency room and they recommended transfer to the [facility] in [place], [place], as there was no GI coverage for the weekend; however, the patient refused. She then represented to the emergency room this morning and is now being admitted. She states that none of her symptoms have changed. No new symptoms. She feels the exact same as she felt prior to coming in for the first time. She denies any fevers or chills. No vomiting up blood. No blood in the stool. She is unable to eat or drink much of anything at all. PAST MEDICAL HISTORY: Significant for peptic ulcer disease due to nonsteroidals , hyperlipidemia, COPD. PAST SURGICAL HISTORY: Includes hysterectomy, oophorectomy, cholecystectomy. MEDICATIONS: At home: 1. Nexium 40 mg twice a day. 2. Carafate 4 times a day. 3. Zofran as needed. ALLERGIES: No known drug allergies. FAMILY HISTORY: No GI malignancies. SOCIAL HISTORY: She quit smoking a few years ago. She does use alcohol on an occasional basis. PHYSICAL EXAM: In the emergency room, the patient is sitting upright. She is conversant, oriented to person, place, and thing. Vital signs reveal temperature of 99, blood pressure 159/96, pulse is 90, respiratory rate of 16, O2 sat is 96%. General: Well-appearing female, in no apparent distress. HEENT : Mucous membranes are moist without lesions, ulcers, or exudate. Neck is supple. Trachea is midline. Head is normocephalic, atraumatic. Heart: Regular rate and rhythm. Lungs: Clear to auscultation. Abdomen: Positive bowel sounds. Soft, tender throughout. No rebound, no guarding. No masses were felt. Skin is warm and dry. LABORATORY DATA: Of note, her white count was 10.9, platelets of 334. Potassium is 2.7, BUN 16, creatinine 0.67. ASSESSMENT AND PLAN: This is a pleasant 68-year-old female, who was just discharged from the hospital approximately 5 days ago for severe erosive esophagitis, who could not tolerate oral medications at home. She is being readmitted. I think she should be restarted on her PPI, Protonix 40 mg IV q.12. She should also use Carafate 4 times a day around the clock. She should have Zofran and pain medicine. I do not think she needs to be re-scoped at this time. It was just 5 days ago that she had her last endoscopy. We will continue to follow along very closely with her. [id number]/[facility] #: [id number] HIMA
[2018-01-19] MEDS: Ondansetron INJ* 2 MG/ML VIAL IV PRN (15:41)
--- NOTE | 2018-01-19 15:45 | HP ---
CC: Julita Pak NP * HISTORY AND PHYSICAL: DATE OF ADMISSION: 01/19/18 PRIMARY CARE PROVIDER: Julita Pak NP. CHIEF COMPLAINT: Vomiting. HISTORY OF PRESENT ILLNESS: Ms. Miller is a 68-year-old female who was hospitalized at [facility] from 01/13/18 to 01/14/18 with complaints of dysphagia and weight loss. She was seen by Gastroenterology and underwent upper endoscopy with Dr. Bell on where she was identified to have a normal-appearing proximal esophagus, mildly rigid mid and distal esophagus with biopsy to rule out eosinophilic esophagitis. Few white exudates in the mid esophagus with brushings to rule out Cathy. Severe distal esophagitis with ulcerations. A distal esophageal stricture with endoscopic dilation and mild tearing was performed. The patient was also identified to have a 2.5 cm hiatal hernia. Moderate pangastritis with erosions and biopsies from the antrum and body was identified and performed. Several clean-based duodenal ulcers and erosions with duodenitis were also identified. The patient was felt to need to be started on PPI twice daily for 6 weeks, then be decrease to once daily. She was recommended to follow up in the GI office in 2 to 3 weeks and to avoid NSAID therapy. Repeat upper endoscopy with further dilation in 6 weeks once the esophagitis has healed was recommended. The patient ultimately ate some ice cream prior to discharge and informed Negin Angeles NP, that she would be able to manage at home. The patient went home and unfortunately was unable to manage eating or drinking very successful. The patient states that she has not had anything to eat or drink since being discharged from the hospital. She states that she has tried to utilize sublingual medications to control her nausea and despite this, she had significant vomiting. The patient initially returned to the emergency room on 01/17/18 with complaints of vomiting, at that time it was recommended because there was no GI on service to be transferred to [facility]. The patient declined and ultimately decided to present back to the emergency room today. PAST MEDICAL HISTORY: 1. Esophagitis, esophageal ulcers, gastritis, and duodenal ulcers as noted above. 2. Esophageal stricture as above. 3. History of hepatitis. 4. Hyperlipidemia. 5. COPD. PAST SURGICAL HISTORY: 1. CARA-BSO. 2. Cholecystectomy. MEDICATIONS: 1. Carafate 10 mL p.o. 4 times a day. 2. Protonix 40 mg p.o. b.i.d. 3. Zofran ODT 4 mg p.o. q.8 hours p.r.n. nausea. 4. Tylenol 650 mg p.o. q.6 hours p.r.n. pain. ALLERGIES: No known drug allergies. FAMILY HISTORY: The patient has no family history of diabetes mellitus or cancer. She is unaware of her father's history. The patient has several maternal uncles with history of heart disease. SOCIAL HISTORY: The patient is a former smoker. She quit 3 to 4 years ago. She is approximately 30-[id number]-[id number] history of smoking. She drinks 2 glasses of wine daily. Her , Víctor Harvey, is her health care proxy. REVIEW OF SYSTEMS: A complete 11-system review of systems is obtained. Pertinent positives and negatives are as per HPI and otherwise negative. PHYSICAL EXAMINATION GENERAL: The patient is a well-developed, middle-aged female seen sitting up in the stretcher, appearing to be in no acute distress. VITAL SIGNS: Blood pressure 142/107, pulse 90, respirations 16, temp 98. HEENT: Pupils are equal and round. Extraocular muscles are intact. Oropharynx is clear. The patient has poor dentition. There is no submandibular , cervical, or subclavicular adenopathy. Thyroid is not enlarged. No thyroid nodules noted. PULMONARY: Lungs are clear to auscultation bilaterally. CARDIAC: Normal S1 and S2. Heart rate is mildly tachycardic, but regular. There is no lower extremity edema. ABDOMEN: Bowel sounds present. Abdomen is soft, nondistended. She is tender to palpation across the entire upper abdomen. The epigastrium is the worst area. MUSCULOSKELETAL: There is no cyanosis or clubbing of the digits. There is full active range of motion of all 4 extremities. NEUROLOGIC: Cranial nerves II through XII are grossly intact. Sensation is intact to light touch throughout. Strength is 5/5 and symmetric in both upper and lower extremities bilaterally. PSYCH: The patient is alert. She is oriented to x3. Affect appears appropriate. SKIN: Warm and dry. There are no rashes. LABORATORY DATA: WBC 10.9, hemoglobin 14.8, hematocrit 41, and platelets 334. Sodium 141, potassium 2.7, chloride 94, CO2 of 26, BUN 16, creatinine 0.67, glucose 135, lactic acid 1.4, calcium 9.9. Bilirubin 0.7, AST 21, ALT 21, alk phos 93. CRP 8.51. Albumin 3.9, lipase 50. Urinalysis is negative for signs of infection. ASSESSMENT AND PLAN: Ms. Miller is a 68-year-old female who was recently diagnosed with severe distal esophageal ulcers, esophageal stricture, pangastritis, and duodenal ulcers who now returns to the emergency room with complaints of vomiting and inability to keep anything down. 1. Vomiting. The patient continues to have esophageal stricture. This was unable to be fully dilated due to her severe esophagitis and esophageal ulcers. The patient states, however, she has not been eating anything at home. My suspicion is that she is having vomiting related to her gastritis. The patient has been unable to manage her symptoms with the sublingual Zofran to quiet down any nausea. She does state that she is feeling slightly better after presenting to the emergency room and receiving IV fluids and Protonix. The patient will be admitted under observation status for IV fluid hydration, potassium supplementation, and repeat GI evaluation. The patient will have morphine available for severe pain. She will be on Protonix 40 mg IV daily. I do think Carafate would be a good meditation for the patient to continue on; however, I will hold off on initiating this for now until she is seen by Gastroenterology. The patient will need to continue to avoid NSAIDs. 2. DVT prophylaxis. According to the Adult Thrombosis Prophylaxis Risk Factor Assessment Guide, the patient has a total risk factor score of 2, making her moderate. Risk ambulation and SCD will be utilized for DVT prophylaxis to avoid heparin in the setting of known esophageal and duodenal ulcers. 3. Cod status is full. TIME SPENT: Sixty-five minutes was spent admitting this patient, of which greater than half spent [id number] with the patient and her reviewing her history, performing physical exam, and reviewing the prior records. [id number]/[facility] #: [id number] HIMA
[2018-01-19] MEDS: Sucralfate TAB* 1 GM PO SCH (22:10)
[2018-01-19] MEDS: Pantoprazole IV* 40 MG IV SCH (22:11)
[2018-01-20] MEDS: NS 0.9% 1000 ML* 1,000 ML IV SCH ×3 (01:18→22:37)
[2018-01-20] MEDS: Sucralfate TAB* 1 GM PO SCH ×4 (06:04→22:38)
[2018-01-20] MEDS: Ondansetron INJ* 2 MG/ML VIAL IV PRN ×2 (06:04→15:37)
[2018-01-20] MEDS: Morphine INJ* 2 MG/ML 1 ML SYRINGE (TWO MG - NEW SYRINGE VERSION) IV PRN ×2 (06:08→22:38)
[2018-01-20 07:01] LABS: Hematocrit 36 % (35-47); Hemoglobin 12.7 g/dl (12.0-16.0); Mean Corpuscular HGB Conc 36 g/dl (31-36); Mean Corpuscular Hemoglobin 35 pg (27-31); Mean Corpuscular Volume 98 fL (80-97); Mean Platelet Volume 8.3 um3 (7.4-10.4); Platelet Count 248 10^3/ul (150-450); Red Blood Count 3.61 10^6/ul (4.00-5.40); Red Cell Distribution Width 14 % (10.5-15); White Blood Count 7.5 10^3/ul (3.5-10.8)
[2018-01-20 07:17] LABS: EGFR Non-African American 112.6 (>60)
--- NOTE | 2018-01-20 09:00 | PN ---
Subjective Date of Service: 01/20/18 Interval History: Continues to c/o nausea and abd pain. burning in the throat. Denies chest pain or shortness of breath. Denies diarrhea. Family History: Unchanged from Admission Social History: Unchanged from Admission Past Medical History: Unchanged from Admission Objective Active Medications: Sodium Chloride (Ns 0.9% 1000 Ml*) 1,000 mls @ 100 mls/hr IV PER RATE [facility] Last Admin: 01/20/18 01:18 Dose: 100 mls/hr Potassium Chloride (Potassium Chloride 20 Meq/100 Ml Ivpremix*) 20 meq in 100 mls @ 50 mls/hr IV Q2H [facility] Stop: 01/20/18 13:59 Morphine Sulfate (Morphine Inj ((Syringe))*) 2 mg IV Q4H PRN PRN Reason: PAIN - MILD Last Admin: 01/20/18 06:08 Dose: 2 mg Ondansetron HCl (Zofran Inj*) 4 mg IV Q6H PRN PRN Reason: NAUSEA Last Admin: 01/20/18 06:04 Dose: 4 mg Pantoprazole Sodium (Protonix Iv*) 40 mg IV Q12H [facility] Last Admin: 01/19/18 22:11 Dose: 40 mg Prochlorperazine Edisylate (Compazine Inj*) 10 mg IV Q6H PRN PRN Reason: NAUSEA/VOMITING Last Admin: 01/19/18 19:50 Dose: 10 mg Sucralfate (Carafate*) 1 gm PO ACHS [facility] Last Admin: 01/20/18 06:04 Dose: 1 gm Vital Signs - 8 hr 01/20/18 01/20/18 01/20/18 03:49 06:08 07:09 Temperature 98.2 F 98.4 F Pulse Rate 100 92 Respiratory 16 18 16 Rate Blood Pressure 160/84 154/81 (mmHg) O2 Sat by Pulse 94 98 Oximetry 01/20/18 07:47 Temperature Pulse Rate Respiratory 14 Rate Blood Pressure (mmHg) O2 Sat by Pulse Oximetry Oxygen Devices in Use Now: None Appearance: appears tired, resting in bed. no acute distress Eyes: No Scleral Icterus Ears/Nose/Mouth/Throat: Clear Oropharnyx, Mucous Membranes Moist Neck: NL Appearance and Movements; NL JVP, Trachea Midline Respiratory: Symmetrical Chest Expansion and Respiratory Effort, Clear to Auscultation Cardiovascular: NL Sounds; No Murmurs; No JVD, No Edema Abdominal: - - NL Sounds, Mild tenderness, No distention Extremities: No Edema, No Clubbing, Cyanosis Skin: No Rash or Ulcers Neurological: Alert and Oriented x 3 Nutrition: Taking PO's Result Diagrams: 01/20/18 06:19 01/20/18 06:16 Assess/Plan/Problems-Billing Assessment: Ms. Carlitos Harvey is a 68 y.o female with a PMHX sign HLD and COPD who was recently DX with gastritis and - Patient Problems (1) Acute erosive gastritis Current Visit: Yes Status: Acute Code(s): K29.00 - ACUTE GASTRITIS WITHOUT BLEEDING SNOMED Code(s): 185804178 Comment: - Continue protonix 40 mg Q 12 hours - Carafate QID - Pain medications and Zofran for nausea (2) Hypokalemia Current Visit: Yes Status: Acute Code(s): E87.6 - HYPOKALEMIA SNOMED Code( s): 27789813 Comment: K level 2.8 today - will give 60 meq KCL IV today and repeat level this PM (3) DVT prophylaxis Current Visit: Yes Status: Acute Code(s): OCE7390 - SNOMED Code(s): 490838547 Comment: - SCd's and ambulation - Avoiding chemical prophylaxis d/t known ulcers (4) Full code status Current Visit: Yes Status: Acute Code(s): Z78.9 - OTHER SPECIFIED HEALTH STATUS SNOMED Code(s): 622135120 Status and Disposition: Discharge home when medically stable
[2018-01-20] MEDS: KCL 20 MEQ/100 ML IVPREMIX* 20 MEQ/100 ML BAG IV SCH ×3 (09:10→14:54)
[2018-01-20] MEDS: Pantoprazole IV* 40 MG IV SCH ×2 (09:10→22:38)
[2018-01-20] MEDS: PROCHLORPERAZINE INJ 5 MG/ML 2 ML VIAL IV PRN (11:48)
--- NOTE | 2018-01-20 21:36 | CONS ---
GASTROENTEROLOGY CONSULTATION ADDENDUM: DATE OF CONSULT: 01/20/18 CONSULTING PRACTITIONER: Magdalena Angeles NP. Coming by the patient's room after she has been given IV fluids and parenteral Protonix to review that she continues to say she cannot eat. She states she has been having trouble "keeping anything down" for a long time. It is very difficult to get her to be more precise. Apparently, she says it has been going for more than a year and points to her sternal notch area. She never brought it to any physician's attention and said the inaction was probably due to depression. Eventually, her forced her to seek care from an emergency room. Later he made reference to her "not eating dinner for a few months" - she said it was longer than that. She said she was between primary physicians leaving the [facility] (who she says had never been told of any digestive problems - last seen over a year ago) and had an appointment next week with Family Medicine. Last week her upper endoscopy appeared normal in the upper and mid esophagus and then there was some irritation and erosions and ulcers at the EG junction and a mild stricture there that was dilated by the scope passage. Some gastric erythema. A CLOtest was negative. There were small erosions in the duodenum, but no obstructing lesion. There was no gastric retention. She states she has been buying [id number] Prilosec, taking it increasingly over the last 3 to 4 months and fairly rarely before that. She has a couple of glasses of wine a day (later said "at least" - her made no comment). She has chronic back pain and headaches. At first she denied doing anything for this but sesveral further questions reveal she takes ibuprofen OTC - she cannot remember how many . Her cannot comment. She is currently receiving Protonix 40 mg q.12 hours IV, sucralfate, and p.r.n. ondansetron. She has been afebrile with stable vitals. There has been no vomiting. She appears in NAD and here lungs are clear and abdomen without any focal abnormality or guarding. Her potassium has been found to be low at 2.8, BUN 12, creatinine 0.54 and CBC today normal, white count 7.5. Biopsies from 01/14/18, EGD showed in the esophagus no eosinophils or viral changes, no Helicobacter in the stomach and normal villous architecture to duodenal biopsies. IMPRESSION: This 68-year-old woman who quit smoking several years ago and who has at least a couple of glasses of wine a day and a fair amount of NSAID intake complains of inability to eat. This has been going on for many months and she has been quite passive. She thinks her cricopharyngeal area needs a dilation though it was pointed out that Dr Bell's plan was to dilate the other end and that there was no obstruction from the point of view of liquids or pureed diet. She has a very vague history as to the timing of events and her decision making. She frequently said "I don't remember " and her never spontaneously commented. There appears to be some anxiety and depression overlay to the symptoms. It is expected that a gradual increase in fluid consistency will eventually be tolerated maybe when electrolytes corrected. [id number]/CPS #: [id number] MTDD
[2018-01-21] MEDS: Lidocaine PATCH 5%* 1 PATCH TRANSDERM SCH ×2 (02:34→09:09)
[2018-01-21] MEDS: Ondansetron INJ* 2 MG/ML VIAL IV PRN ×3 (03:12→22:29)
[2018-01-21 05:37] LABS: ABS Basophils 0.1 10^3/ul (0-0.2); ABS Eosinophils 0.1 10^3/ul (0-0.6); ABS Lymphocytes 0.9 10^3/ul (1.0-4.8); ABS Monocytes 0.7 10^3/ul (0-0.8); ABS Neutrophils 5.2 10^3/ul (1.5-7.7); ABS Nucleated RBC 0 10^3/ul; Eosinophil % 1.2 % (0-6); Hematocrit 36 % (35-47); Hemoglobin 12.7 g/dl (12.0-16.0); Lymphocyte % 13.3 % (25-47); Mean Corpuscular HGB Conc 35 g/dl (31-36); Mean Corpuscular Hemoglobin 34 pg (27-31); Mean Corpuscular Volume 98 fL (80-97); Mean Platelet Volume 8.2 um3 (7.4-10.4); Nucleated Red Blood Cells % 0; Platelet Count 250 10^3/ul (150-450); Red Blood Count 3.69 10^6/ul (4.00-5.40); Red Cell Distribution Width 14 % (10.5-15)
[2018-01-21 05:52] LABS: EGFR Non-African American 150.5 (>60)
[2018-01-21] MEDS ORDERED: Magnesium Sulfate IV* 3 GM in NS 0.9% 100 ML* 100 ML IVPB ONE (05:59)
--- NOTE | 2018-01-21 06:00 | PN ---
Progress Note - Progress Note Date of Service: 01/21/18 Note: Paged for critical low K - concerned pt. won't tolerate PO. Will order IV K and Mg.
[2018-01-21] MEDS: KCL 20 MEQ/100 ML IVPREMIX* 20 MEQ/100 ML BAG IV SCH ×2 (06:35→10:45)
[2018-01-21] MEDS: Sucralfate TAB* 1 GM PO SCH ×4 (07:57→22:09)
[2018-01-21] MEDS: Pantoprazole IV* 40 MG IV SCH ×2 (07:57→22:10)
[2018-01-21] MEDS: NS 0.9% 1000 ML* 1,000 ML IV SCH (09:21)
[2018-01-21] MEDS: PROCHLORPERAZINE INJ 5 MG/ML 2 ML VIAL IV PRN (12:19)
--- NOTE | 2018-01-21 15:33 | RAD ---
HISTORY: r/o sbo, vomiting COMPARISONS: CT dated January 13, 2018 VIEWS: Frontal supine and upright views of the abdomen. FINDINGS: BOWEL: There is a nonspecific bowel gas pattern, with nondilated small bowel gas noted. Oral contrast is noted within the colon. CALCULI: There are no abnormal calculi. BONES AND SOFT TISSUES: Mild degenerative changes are noted. OTHER FINDINGS: The lung bases are clear. There is no subphrenic gas. IMPRESSION: NONSPECIFIC BOWEL GAS PATTERN. ORAL CONTRAST IS NOTED WITHIN THE COLON.
[2018-01-21] MEDS: Morphine INJ* 2 MG/ML 1 ML SYRINGE (TWO MG - NEW SYRINGE VERSION) IV PRN (22:07)
[2018-01-21] MEDS: Lidocaine Patch REMOVE* 1 NOTE MISC SCH (22:10)
[2018-01-21] MEDS ORDERED: NS 0.9% 1000 ML* 1,000 ML IV SCH (22:27)
--- NOTE | 2018-01-21 22:53 | PN ---
Subjective Date of Service: 01/21/18 Interval History: potassium and magnesium levels low this AM - replaced, States that she continues to have episodes of vomiting but states that they have improved slightly. continues to c/o difficulty swallowing. denies chest pain, reports upper epigastric pain. denies diarrhea. Family History: Unchanged from Admission Social History: Unchanged from Admission Past Medical History: Unchanged from Admission Objective Active Medications: Potassium Chloride (Potassium Chloride 20 Meq/100 Ml Ivpremix*) 20 meq in 100 mls @ 50 mls/hr IV Q2H [facility] [place] Stop: 01/22/18 02:59 Sodium Chloride (Ns 0.9% 1000 Ml*) 1,000 mls @ 75 mls/hr IV PER RATE [facility] [place] Lidocaine (Lidoderm 5% Patch*) 1 patch TRANSDERM DAILY [facility] Last Admin: 01/21/18 09:09 Dose: 1 patch Morphine Sulfate (Morphine Inj ((Syringe))*) 2 mg IV Q4H PRN PRN Reason: PAIN - MILD Last Admin: 01/21/18 22:07 Dose: 2 mg Ondansetron HCl (Zofran Inj*) 4 mg IV Q6H PRN PRN Reason: NAUSEA Last Admin: 01/21/18 22:29 Dose: 4 mg Pantoprazole Sodium (Protonix Iv*) 40 mg IV Q12H [facility] [place] Last Admin: 01/21/18 22:10 Dose: 40 mg Pharmacy Profile Note (Lidocaine Patch Remove*) 1 note N/A 2100 [facility] [place] Last Admin: 01/21/18 22:10 Dose: 1 note Prochlorperazine Edisylate (Compazine Inj*) 10 mg IV Q6H PRN PRN Reason: NAUSEA/VOMITING Last Admin: 01/21/18 12:19 Dose: 10 mg Sucralfate (Carafate*) 1 gm PO ACHS [facility] Last Admin: 01/21/18 22:09 Dose: 1 gm Vital Signs - 8 hr 01/21/18 01/21/18 15:19 22:07 Temperature 98.3 F Pulse Rate 99 Respiratory 16 16 Rate Blood Pressure 142/77 (mmHg) O2 Sat by Pulse 98 Oximetry Oxygen Devices in Use Now: None Appearance: appears comfortable sitting in bed. no acute distress Eyes: No Scleral Icterus Ears/Nose/Mouth/Throat: Clear Oropharnyx, Mucous Membranes Moist Neck: NL Appearance and Movements; NL JVP, Trachea Midline Respiratory: Symmetrical Chest Expansion and Respiratory Effort, Clear to Auscultation Cardiovascular: NL Sounds; No Murmurs; No JVD, No Edema Abdominal: NL Sounds; No Tenderness; No Distention, - - c/o upper epigastric tenderness Extremities: No Edema, No Clubbing, Cyanosis Skin: No Rash or Ulcers, No Nodules or Sclerosis Neurological: Alert and Oriented x 3 Nutrition: Taking PO's Result Diagrams: 01/21/18 05:10 01/21/18 19:58 Assess/Plan/Problems-Billing Assessment: Ms. Carlitos Harvey is a 68 y.o female with a PMHX sign HLD and COPD who was recently DX with gastritis and - Patient Problems (1) Acute erosive gastritis Current Visit: Yes Status: Acute Code(s): K29.00 - ACUTE GASTRITIS WITHOUT BLEEDING SNOMED Code(s): 255947620 Comment: - some improvement today- advanced diet to full liquid - episodes of vomiting improving - Continue protonix 40 mg Q 12 hours - Carafate QID - Pain medications and Zofran for nausea (2) Hypokalemia Current Visit: Yes Status: Acute Code(s): E87.6 - HYPOKALEMIA SNOMED Code( s): 49088147 Comment: K level 2.7 today - will give 40 meq KCL IV today and repeat level this PM 3.0- given another 40 MEQ KCL IV (3) Hypomagnesemia Current Visit: Yes Status: Acute Code(s): E83.42 - HYPOMAGNESEMIA SNOMED Code(s): 762483639 Comment: magnesium 1.4 today - given 4 grams of magnesium will repeat magnesium in the AM (4) DVT prophylaxis Current Visit: Yes Status: Acute Code(s): JCX8261 - SNOMED Code(s): 848176630 Comment: - SCd's and ambulation - Avoiding chemical prophylaxis d/t known ulcers (5) Full code status Current Visit: Yes Status: Acute Code(s): Z78.9 - OTHER SPECIFIED HEALTH STATUS SNOMED Code(s): 737736126 Status and Disposition: Discharge home when medically stable
[2018-01-22] MEDS: KCL 20 MEQ/100 ML IVPREMIX* 20 MEQ/100 ML BAG IV SCH ×2 (00:49→03:12)
[2018-01-22] MEDS: Morphine INJ* 2 MG/ML 1 ML SYRINGE (TWO MG - NEW SYRINGE VERSION) IV PRN (04:01)
[2018-01-22 07:26] LABS: ABS Basophils 0.1 10^3/ul (0-0.2); ABS Eosinophils 0.1 10^3/ul (0-0.6); ABS Lymphocytes 1.4 10^3/ul (1.0-4.8); ABS Monocytes 0.8 10^3/ul (0-0.8); ABS Neutrophils 4.9 10^3/ul (1.5-7.7); ABS Nucleated RBC 0 10^3/ul; Eosinophil % 0.9 % (0-6); Hematocrit 36 % (35-47); Hemoglobin 12.6 g/dl (12.0-16.0); Lymphocyte % 19.8 % (25-47); Mean Corpuscular HGB Conc 36 g/dl (31-36); Mean Corpuscular Hemoglobin 35 pg (27-31); Mean Corpuscular Volume 98 fL (80-97); Mean Platelet Volume 7.9 um3 (7.4-10.4); Nucleated Red Blood Cells % 0; Platelet Count 258 10^3/ul (150-450); Red Blood Count 3.64 10^6/ul (4.00-5.40); Red Cell Distribution Width 13 % (10.5-15); White Blood Count 7.2 10^3/ul (3.5-10.8)
[2018-01-22] MEDS ORDERED: Magnesium Hydroxide LIQ* 30 ML UDC PO ONE (07:40)
[2018-01-22 07:47] LABS: EGFR Non-African American 135.5 (>60)
--- NOTE | 2018-01-22 07:48 | PN ---
Subjective Date of Service: 01/22/18 Interval History: Feeling better today although she had emesis a few hours ago. She slept well last night and feels more relaxed. No BM for several days. Some pain across the epigastrium. She requests APAP which she uses at home for he chronic low back pain. Family History: Unchanged from Admission Social History: Unchanged from Admission Past Medical History: Unchanged from Admission Objective Active Medications: Potassium Chloride/Dextrose (D5w 1/2 Ns Kcl 20 Meq 1000 Ml*) 1,000 mls @ 100 mls/hr IV PER RATE [facility] Lidocaine (Lidoderm 5% Patch*) 1 patch TRANSDERM DAILY [facility] Last Admin: 01/21/18 09:09 Dose: 1 patch Ondansetron HCl (Zofran Inj*) 4 mg IV Q6H PRN PRN Reason: NAUSEA Last Admin: 01/21/18 22:29 Dose: 4 mg Pantoprazole Sodium (Protonix Iv*) 40 mg IV Q12H [facility] Last Admin: 01/21/18 22:10 Dose: 40 mg Pharmacy Profile Note (Lidocaine Patch Remove*) 1 note N/A 2100 [facility] Last Admin: 01/21/18 22:10 Dose: 1 note Prochlorperazine Edisylate (Compazine Inj*) 10 mg IV Q6H PRN PRN Reason: NAUSEA/VOMITING Last Admin: 01/21/18 12:19 Dose: 10 mg Sucralfate (Carafate*) 1 gm PO ACHS [facility] Last Admin: 01/21/18 22:09 Dose: 1 gm Vital Signs - 8 hr 01/22/18 01/22/18 01/22/18 03:02 04:01 07:13 Temperature 98.2 F 97.4 F Pulse Rate 104 106 Respiratory 20 16 18 Rate Blood Pressure 163/94 162/97 (mmHg) O2 Sat by Pulse 96 97 Oximetry Oxygen Devices in Use Now: None Appearance: Alert, partly up in bed. In good spirits. Looks comfortable. Eyes: No Scleral Icterus Abdominal: No Hepatosplenomegaly - soft, not distended. nl BS. Mild diffuse tenderness. Extremities: No Edema, No Clubbing, Cyanosis, - Skin: No Rash or Ulcers, No Nodules or Sclerosis, - Neurological: Alert and Oriented x 3, NL Sensation Result Diagrams: 01/22/18 07:03 01/21/18 19:58 Assess/Plan/Problems-Billing Assessment: Ms. Carlitos Harvey is a 68 y.o female with a PMHX sign HLD and COPD who was recently DX with gastritis and - Patient Problems (1) Acute erosive gastritis Current Visit: Yes Status: Acute Code(s): K29.00 - ACUTE GASTRITIS WITHOUT BLEEDING SNOMED Code(s): 106205184 Comment: severe esophagitis, gastritis, duodenal ulcers, in part related to recent ibuprofen use. - some improvement today- continue full liquid diet - episodes of vomiting improving - Continue protonix 40 mg Q 12 hours, sucralfate QID - APAP for pain, Zofran for nausea (2) Hypokalemia Current Visit: Yes Status: Acute Code(s): E87.6 - HYPOKALEMIA SNOMED Code( s): 69805023 Comment: K level 3.4 01/22. Should replete herself with diet if emesis continues to improve. Needs outpt fup. (3) Hypomagnesemia Current Visit: Yes Status: Acute Code(s): E83.42 - HYPOMAGNESEMIA SNOMED Code(s): 089293663 Comment: magnesium 1.8 on 01/22. Should replete herself with diet if emesis continues to improve. Mag oxide po ordered. Needs outpt fup. (4) Back pain Current Visit: Yes Status: Acute Code(s): M54.9 - DORSALGIA, UNSPECIFIED SNOMED Code(s): 786337455 Comment: APAP ordered, which she uses at home. Status and Disposition: Discharge home when medically stable
[2018-01-22] MEDS: Sucralfate TAB* 1 GM PO SCH ×4 (07:52→21:15)
[2018-01-22] MEDS: Pantoprazole IV* 40 MG IV SCH ×2 (07:52→21:15)
[2018-01-22] MEDS: Lidocaine PATCH 5%* 1 PATCH TRANSDERM SCH (07:52)
[2018-01-22] MEDS ORDERED: D5W 1/2 NS KCl 20 Meq 1000 ML* 1,000 ML IV SCH (08:00)
[2018-01-22] MEDS: Magnesium Oxide TAB* 400 MG PO SCH (08:12)
[2018-01-22] MEDS ORDERED: Simethicone TAB* 80 MG TAB.CHEW PO PRN (16:21)
[2018-01-22] MEDS: Polyethylene Glycol 3350* 17 GM PACKET PO SCH ×2 (16:40→21:17)
[2018-01-22] MEDS: Melatonin 3 MG TAB PO PRN (21:15)
[2018-01-22] MEDS: Acetaminophen TAB* 325 MG PO PRN (21:15)
[2018-01-22] MEDS: Lidocaine Patch REMOVE* 1 NOTE MISC SCH (21:17)
[2018-01-22] MEDS ORDERED: Morphine VIAL* 4 MG/ML VIAL (1 ml vial) IV ONE ×2 (21:42→21:45)
[2018-01-22] MEDS: PROCHLORPERAZINE INJ 5 MG/ML 2 ML VIAL IV PRN (21:51)
--- NOTE | 2018-01-22 22:23 | PN ---
Hospitalist Progress Note Date of Service: 01/22/18 HOSPITALIST ADDENDUM Called b RN because patient c/o double vision. Mrs Miller states around 6:30pm she started to have double vision, "seeing 2 TVs". Had 2 episodes of vomiting, but states she's been "vomiting all the time". Selected Entries 01/22/18 01/22/18 22:08 22:15 Temperature 97.9 F Pulse Rate 100 Blood Pressure 150/78 (mmHg) O2 Sat by Pulse 98 Oximetry CVS: normal S1 and S2, RRR Chest: BS+ bilaterally, no added sounds Neuro: AAOx3, sensation intact, moves all 4 extremities with power 5/5. Diplopia is present, with nystagmus (fast phase to the right). A/P: Diplopia and nystagmus, r/o CVA - Check CT brain stat. - Neurologist paged. - Aspirin and Meclizine.
[2018-01-22] MEDS: Meclizine TAB* 12.5 MG PO PRN (22:46)
[2018-01-22] MEDS: Aspirin EC TAB* 81 MG TAB.EC PO SCH (22:47)
[2018-01-23] MEDS: Melatonin 3 MG TAB PO PRN (02:06)
[2018-01-23] MEDS: Ondansetron INJ* 2 MG/ML VIAL IV PRN (02:45)
[2018-01-23] MEDS: Morphine INJ* 2 MG/ML 1 ML SYRINGE (TWO MG - NEW SYRINGE VERSION) IV PRN ×2 (02:45→21:54)
--- NOTE | 2018-01-23 07:38 | RAD ---
INDICATION: Diplopia, nystagmus. COMPARISON: There are no prior studies available for comparison. TECHNIQUE: Contiguous axial sections of the brain were obtained from the skull base to the vertex without contrast. FINDINGS: The ventricles, cisterns and sulci are within normal limits. No significant focal abnormality or mass effect is seen. There is no evidence for hemorrhage. No significant focal osseous abnormality is seen. The visualized portion of the paranasal sinuses and mastoid air cells appear clear. IMPRESSION: NO EVIDENCE FOR ACUTE INTRACRANIAL ABNORMALITY.
[2018-01-23] MEDS: Aspirin EC TAB* 81 MG TAB.EC PO SCH (09:08)
[2018-01-23] MEDS: Magnesium Oxide TAB* 400 MG PO SCH (09:08)
[2018-01-23] MEDS: Pantoprazole IV* 40 MG IV SCH ×2 (09:08→21:30)
[2018-01-23] MEDS: Lidocaine PATCH 5%* 1 PATCH TRANSDERM SCH (09:09)
[2018-01-23] MEDS: Sucralfate TAB* 1 GM PO SCH ×2 (09:19→13:59)
[2018-01-23] MEDS: Acetaminophen TAB* 325 MG PO PRN ×2 (09:19→09:23)
[2018-01-23] MEDS: Polyethylene Glycol 3350* 17 GM PACKET PO SCH ×2 (09:20→21:44)
--- NOTE | 2018-01-23 12:24 | RAD ---
HISTORY: dizziness, abnl CTA COMPARISONS: MRI of the brain dated January 23, 2018 TECHNIQUE: 3-D axial [id number] MR angiography was performed of the head to include the lummi of Hunt. Multiple 3-D maximum intensity projection reconstructions are also submitted for review. FINDINGS: RIGHT VERTEBRAL ARTERY: The distal right vertebral artery is unremarkable, without stenosis. LEFT VERTEBRAL ARTERY: The distal left vertebral artery is unremarkable, without stenosis. DOMINANCE: The vertebral arteries are codominant. DISTAL RIGHT CERVICAL INTERNAL CAROTID ARTERY: The distal right cervical internal carotid artery is unremarkable. DISTAL LEFT CERVICAL INTERNAL CAROTID ARTERY: The distal left cervical internal carotid artery is unremarkable. INTRACRANIAL CIRCULATION: There is no aneurysm, vascular malformation, occlusion, or stenosis of the visualized intracranial circulation. The anterior communicating artery complex is clear. Bilateral posterior communicating arteries are identified. OTHER FINDINGS: None IMPRESSION: NO ANEURYSM, VASCULAR MALFORMATION, OCCLUSION, OR STENOSIS OF THE VISUALIZED INTRACRANIAL CIRCULATION.
--- NOTE | 2018-01-23 12:27 | RAD ---
HISTORY: Diplopia, nystagmus r/o posterior circulation CVA COMPARISONS: Head CT dated January 23, 2018, MR a dated January 23, 2018 TECHNIQUE: The following sequences were obtained of the head: Sagittal T1-weighted images, axial T2-weighted images, axial FLAIR images, axial susceptibility weighted images, axial T1-weighted images. Additionally, axial diffusion-weighted images were obtained with calculated apparent diffusion coefficients. FINDINGS: HEMORRHAGE/INFARCT: There is no hemorrhage or acute infarct. MASSES/SHIFT: There is no mass or shift. EXTRA-AXIAL SPACES/MENINGES: There are no extra-axial fluid collections. SULCI AND VENTRICLES: The sulci and ventricles are normal in size and position for the patient's stated age. CEREBRUM: There are multiple scattered small foci of elevated T2/FLAIR signal within the periventricular and subcortical white matter. BRAINSTEM: There are no focal parenchymal abnormalities. CEREBELLUM: There are no focal parenchymal abnormalities. The cerebellar tonsils are normal in size and position. SELLA: The sella is normal. PINEAL: The pineal region is clear. CP ANGLE/TEMPORAL BONES: The labyrinthine structures are grossly normal. VESSELS: Normal flow-voids are noted within the visualized vertebral vasculature. DIFFUSION ABNORMALITIES: There are no diffusion abnormalities. PARANASAL SINUSES/MASTOIDS: The paranasal sinuses are clear. ORBITS: The orbits are unremarkable. BONES AND SOFT TISSUE: No bone or soft tissue abnormalities are noted. OTHER: None IMPRESSION: 1. THERE ARE MULTIPLE FOCI OF ELEVATED T2/FLAIR SIGNAL WITHIN THE PERIVENTRICULAR AND SUBCORTICAL WHITE MATTER. WHILE THESE FINDINGS ARE NONSPECIFIC, THEY CAN BE SEEN IN ASSOCIATION WITH MIGRAINE HEADACHE, THE SEQUELA OF PREVIOUS INFECTION OR INFLAMMATION, AND CHRONIC SMALL VESSEL ISCHEMIA. DEMYELINATING DISEASE IS ALSO WITHIN THE DIFFERENTIAL, BUT IS CONSIDERED LESS LIKELY IN THE ABSENCE OF THE APPROPRIATE CLINICAL PRESENTATION. 2. NO RESTRICTED DIFFUSION TO SUGGEST ACUTE INFARCT.
[2018-01-23] MEDS: Prochlorperazine TAB* 10 MG PO SCH ×3 (14:57→21:31)
[2018-01-23] MEDS: Meclizine TAB* 12.5 MG PO PRN (14:57)
[2018-01-23] MEDS: Sucralfate SUSP 1 GM/10 ml 10 ML UDC PO SCH (16:29)
[2018-01-23] MEDS ORDERED: Thiamine IV* 500 MG in NS 0.9% 250 ML* 250 ML IV ONE (17:03)
[2018-01-23] MEDS ORDERED: Lidocaine 1% INJ* 10 MG/ML 30 ML SDV ONE (17:09)
[2018-01-23 18:16] LABS: Body Fluid Source Cerebral Spinal
[2018-01-23] MEDS: Acetaminophen ADULT LIQ* 650 MG/20.3 ML UDC PO PRN (19:22)
--- NOTE | 2018-01-23 19:32 | PN ---
Hospitalist Progress Note Date of Service: 01/23/[address] results with Dr. Davila. Suspect this may represent a traumatic spinal tap. Dr. Davila will discuss case with neurology in the AM.
--- NOTE | 2018-01-23 20:15 | CONS ---
CC: Primary Care Physician NEUROLOGY CONSULT REPORT: DATE OF CONSULT: 01/23/18 REQUESTING PHYSICIAN: Dr. Novoa. REASON FOR CONSULT: Diplopia. HISTORY OF PRESENT ILLNESS: The patient is a 68-year-old right-handed female, who has a history of dysphagia and weight loss. She had a hospital admission from 01/13/18 to 01/14/18 when she had an endoscopy that was normal appearing in the proximal esophagus, mildly rigid in mid and distal esophagus, and also had severe distal esophagitis and ulcerations. She was discharged home and she came back again on 01/19/18 with persistent vomiting and nausea and admitted to the hospital. She was undergoing treatment for her GI symptoms when suddenly around 6:30 p.m. on 01/22/18 she noticed double vision in her far sight. She did not have any associated new neurological symptoms such as no slurred speech, no weakness in the arms, legs, or face. As the Hospitalist called the neurologist on-call, it was recommended to obtain an MRI of the brain. I came to see the patient today. She still mentions that her double vision is the same as last night. She feels that this mostly happens for far object, not for objects that are near to her. She has not developed any new symptoms since last night. She cannot clearly state if the two images are side by side of on top of each other. She does not report any change in the distance of the images with lateral gaze. PAST MEDICAL HISTORY: 1. Esophageal ulcers and gastritis as noted above. 2. Hepatitis. 3. Hyperlipidemia. 4. COPD. PAST SURGICAL HISTORY: 1. History of abdominal hysterectomy and oophorectomy. 2. Cholecystectomy. MEDICATIONS: Current medications include: 1. Tylenol 650 mg p.o. q.4 hours p.r.n. 2. Aspirin 81 mg p.o. daily. 3. Magnesium 400 mg p.o. daily. 4. Meclizine 25 mg p.o. q.8 hours. 5. Melatonin 3 mg p.o. at bedtime. 6. Zofran 4 mg IV p.r.n. q.6 hours. 7. Morphine 2 mg IV q.4 hours p.r.n. 8. Protonix. 9. MiraLAX. 10. Compazine. 11. Simethicone. 12. Sucralfate. ALLERGIES: No known drug allergies. FAMILY HISTORY: There is no history of neurological disorders in the family. Her maternal uncles have history of heart disease. SOCIAL HISTORY: The patient quit smoking about 3 to 4 years ago and she has a history of 40-pack year smoking in the past. Drinks about 2 glasses of wine daily. REVIEW OF SYSTEMS: Other than symptoms that were mentioned above, she occasionally has some nonsustained and transient dizziness with change of position. She has noticed difficulty of walking also in the past week. PHYSICAL EXAM: Blood pressure is 120/70, pulse rate is 91, respiratory rate is 16, O2 sat 98% on room air, and temperature 97.4. The patient is awake, alert, and oriented x3. She seems fatigued and chronically ill, with somewhat a masked facies. She does not appear to be in any acute distress. The patient's pupils are 3 mm, symmetric, and reactive to light. Visual montesinos are intact by confrontation. There is no diplopia in the objects close to her, such as when she is following a pen in front of her face, but when she looks at far objects such as TV, she feels double. Again, she cannot tell me clearly if the images are side by side or on top of each other and she does not feel any change in her distance of the 2 images when she changes her gaze to the left or right. There is somewhat restriction of the movement of right eye in the right gaze. There is square-wave nystagmus on the straight gaze. Face is symmetric. V1 to V3 is intact to light touch and pinprick. Tongue is in midline. Palate elevates upwards. Strength is 4/5 in the proximal muscles in the upper and lower extremities, other muscles are 5/5 throughout. There is no pronator drift. There is a very mild target tremor in the left arm, but no dysmetria. [id number] is intact bilaterally. Rapid alternating movements are intact bilaterally. Deep tendon reflexes are 1+ and symmetric in the upper and lower extremities. Gait is cautious, but narrow based, she needs to use a walker for ambulation since last week because she feels unsteady. DIAGNOSTIC STUDIES/LAB DATA: WBC 7.2, hemoglobin 12.6, hematocrit 36. Sodium 139, potassium 3.4, creatinine 0.46, BUN 5, calcium 8.4, magnesium 1.8. Imaging: MRI of the brain shows multiple foci with elevated T2 signal within the periventricular and subcortical white matter, which are nonspecific, and MRA of the brain is negative. ASSESSMENT AND PLAN: The patient is a 68-year-old female with history of gastritis and esophagitis with 1 week history of worsening of her nausea and vomiting with sudden onset of diplopia. On exam, I had a suspicion that there is a partial right 6th nerve palsy as there is some restriction in the right eye movement to the right, and also there is diplopia to the far objects, but not near objects. Rest of the neurological exam is remarkable for presence of square-wave nystagmus. The square-wave nystagmus is nonspecific and is mostly seen in vestibular abnormalities. Given that her MRI did not show any acute process such as a small acute stroke (which was my first differential), it is important to rule out demyelinating disease or an inflammatory process with an LP with investigation for routine cells and protein, Gram stain, culture, as well as acid-fast bacilli smear and QuantiFERON, Lyme antibodies, and oligoclonal bands. Given her history of poor oral intake and history of alcohol (wine almost nightly) replenishing vitamin B1 + Multivitamin (banana bag) is recommended. Neurology will continue to follow. [id number]/[facility] #: [id number] [facility]
[2018-01-23] MEDS: Lidocaine Patch REMOVE* 1 NOTE MISC SCH (21:49)
[2018-01-24] MEDS: Sucralfate SUSP 1 GM/10 ml 10 ML UDC PO SCH ×5 (00:59→21:07)
[2018-01-24] MEDS: Acetaminophen ADULT LIQ* 650 MG/20.3 ML UDC PO PRN ×4 (01:04→21:26)
--- NOTE | 2018-01-24 02:56 | PM ---
DATE OF VISIT: 01/23/18 - ROOM #447 HISTORY: I was consulted to see . Zoila Miller by Dr. Davila who has been admitted to the medicine service for evaluation of gastritis and abdominal pain, now with an episode of double vision requiring rule out meningitis. Dr. Davila stated that after consulting with Neurology, it was felt that she would be appropriate to undergo a lumbar puncture to rule out neuraxial processes. She is not taking any current anticoagulants and was not on anticoagulant prophylaxis for DVT due to gastritis and ulcer history. Allergies: None HOME MEDICATIONS: 1. Carafate 10 mL p.o. 4 times a day. 2. Pantoprazole 40 mg p.o. b.i.d. 3. Ondansetron 4 mg p.o. q.8. 4. Tylenol 650 mg p.o. q.6 hours. ROS: patient denies use of anticoagulants, history of coagulopathy, or recent systemic infectious processes. PROCEDURE: lumbar puncture The patient's weight 58.9 kilos, height 1.65 meters. . The patient was brought to the minor procedure room in the same-day surgery area. Informed consent was obtained. The risks including but not limited to bleeding, bruising, infection, nerve injury, and headache were discussed with the patient, who verbalized understanding and elected to proceed with the procedure. She was seated in the upright position with feet on a chair. Her axial low back was cleansed with chlorhexidine skin prep. A time-out was performed. The L2-3 interspace was palpated. 1% lidocaine plain was used for local anesthesia of the skin and subcutaneous tissues. A 20-gauge introducer and a 25-gauge Pencan needle was used to access the intrathecal space. Free flowing CSF initially clear, was aspirated from the neuraxial space, and sent to the lab for further testing. Upon further aspiration of fluid, there was some slightly heme-tinged CSF from the neuraxial space. The patient did not appear to suffer any paresthesias or subsequent bleeding. The needles were then removed and her back was dressed with a Band-Aid per usual. She was given the usual discharge instructions to avoid tub baths, hot tubs, and swimming. She will follow up with myself as needed and with Dr. Davila. [id number]/[facility] #: [id number] [facility]
[2018-01-24] MEDS: Morphine INJ* 2 MG/ML 1 ML SYRINGE (TWO MG - NEW SYRINGE VERSION) IV PRN (03:44)
[2018-01-24] MEDS ORDERED: NS 0.9% 500 ML* 500 ML IV ONE (05:16)
--- NOTE | 2018-01-24 05:25 | PN ---
Hospitalist Progress Note Date of Service: 01/24/18 HOSPITALIST ADDENDUM Called by RN because patient became lightheaded while having a BM. VS showed BP 82/54 and Tele showed sinus tachycardia 120s. Patient was moved back to bed and is now lying comfortably. Will give NS 500ml bolus and continue to monitor.
[2018-01-24] MEDS: Pantoprazole IV* 40 MG IV SCH (08:42)
[2018-01-24] MEDS: Lidocaine PATCH 5%* 1 PATCH TRANSDERM SCH (08:42)
[2018-01-24] MEDS: Magnesium Oxide TAB* 400 MG PO SCH (08:43)
[2018-01-24] MEDS: Polyethylene Glycol 3350* 17 GM PACKET PO SCH (08:43)
[2018-01-24] MEDS: Prochlorperazine TAB* 10 MG PO SCH ×2 (08:44→12:17)
[2018-01-24] MEDS: Aspirin EC TAB* 81 MG TAB.EC PO SCH (08:44)
[2018-01-24] MEDS: Thiamine TAB* 100 MG TAB PO SCH (10:43)
--- NOTE | 2018-01-24 11:08 | PN ---
Progress Note - Progress Note Date of Service: 01/24/18 SOAP: Neurology progress note Date of service: 01/24/18 Subjective: Patient did not have a good sleep last night, had abdominal pain and diarrhea but feels better now. She has been using a patch over her right eye, so is not sure how her diplopia has been. After removing the patch this morning she reports that her diplopia is better. She had also her LP completed last evening. Objective: Vital Signs Temp Pulse Resp BP Pulse Ox 97.4 F 90 16 121/73 96 01/24/18 07:31 01/24/18 07:31 01/24/18 08:00 01/24/18 07:31 01/24/18 07:31 Current Medications Acetaminophen (Tylenol Adult Liq*) 650 mg PO Q4H PRN PRN Reason: PAIN Last Admin: 01/24/18 09:01 Dose: 650 mg Aspirin (Aspirin Ec Tab*) 81 mg PO DAILY [facility] Last Admin: 01/24/18 08:44 Dose: 81 mg Lidocaine (Lidoderm 5% Patch*) 1 patch TRANSDERM DAILY [facility] Last Admin: 01/24/18 08:42 Dose: 1 patch Magnesium Oxide (Magox 400 Tab*) 400 mg PO DAILY [facility] Last Admin: 01/24/18 08:43 Dose: 400 mg Meclizine HCl (Antivert Tab*) 25 mg PO Q8HR PRN PRN Reason: DIZZINESS Last Admin: 01/23/18 14:57 Dose: 25 mg Melatonin (Melatonin) 3 mg PO BEDTIME PRN PRN Reason: SLEEP Last Admin: 01/23/18 02:06 Dose: 3 mg Morphine Sulfate (Morphine Inj ((Syringe))*) 2 mg IV Q4H PRN PRN Reason: SEVERE PAIN Last Admin: 01/24/18 03:44 Dose: 2 mg Ondansetron HCl (Zofran Inj*) 4 mg IV Q6H PRN PRN Reason: NAUSEA Last Admin: 01/23/18 02:45 Dose: 4 mg Pantoprazole Sodium (Protonix Iv*) 40 mg IV Q12H [facility] Last Admin: 01/24/18 08:42 Dose: 40 mg Pharmacy Profile Note (Lidocaine Patch Remove*) 1 note N/A 2100 [facility] Last Admin: 01/23/18 21:49 Dose: 1 note Polyethylene Glycol/Electrolytes (Miralax*) 17 gm PO BID [facility] Last Admin: 01/24/18 08:43 Dose: Not Given Prochlorperazine (Compazine Tab*) 10 mg PO QID [facility] Last Admin: 01/24/18 08:44 Dose: 10 mg Simethicone (Mylicon Tab*) 80 mg PO BID PRN PRN Reason: . Last Admin: 01/22/18 16:40 Dose: 80 mg Sucralfate (Sucralfate Susp) 1 gm PO 0630,1100,1600,2100 [facility] Last Admin: 01/24/18 10:32 Dose: 1 gm Thiamine HCl (Vitamin B-1 Tab*) 100 mg PO DAILY [facility] Last Admin: 01/24/18 10:43 Dose: 100 mg Laboratory Last Values WBC 7.2 10^3/ul (3.5-10.8) 01/22/18 07:03 RBC 3.64 10^6/ul (4.00-5.40) L 01/22/18 07:03 Hgb 12.6 g/dl (12.0-16.0) 01/22/18 07:03 Hct 36 % (35-47) 01/22/18 07:03 MCV 98 fL (80-97) H 01/22/18 07:03 MCH 35 pg (27-31) H 01/22/18 07:03 MCHC 36 g/dl (31-36) 01/22/18 07:03 RDW 13 % (10.5-15) 01/22/18 07:03 Plt Count 258 10^3/ul (150-450) 01/22/18 07:03 MPV 7.9 um3 (7.4-10.4) 01/22/18 07:03 Neut % (Auto) 67.7 % (38-83) 01/22/18 07:03 Lymph % (Auto) 19.8 % (25-47) L 01/22/18 07:03 [place] % (Auto) 10.8 % (0-7) H 01/22/18 07:03 Eos % (Auto) 0.9 % (0-6) 01/22/18 07:03 Baso % (Auto) 0.8 % (0-2) 01/22/18 07:03 Absolute Neuts (auto) 4.9 10^3/ul (1.5-7.7) 01/22/18 07:03 Absolute Lymphs (auto) 1.4 10^3/ul (1.0-4.8) 01/22/18 07:03 Absolute Monos (auto) 0.8 10^3/ul (0-0.8) 01/22/18 07:03 Absolute Eos (auto) 0.1 10^3/ul (0-0.6) 01/22/18 07:03 Absolute Basos (auto) 0.1 10^3/ul (0-0.2) 01/22/18 07:03 Absolute Nucleated RBC 0 10^3/ul 01/22/18 07:03 Nucleated RBC % 0 01/22/18 07:03 Sodium 139 mmol/L (135-145) 01/22/18 07:03 Potassium 3.4 mmol/L (3.5-5.0) L 01/22/18 07:03 Chloride 102 mmol/L (101-111) 01/22/18 07:03 Carbon Dioxide 25 mmol/L (22-32) 01/22/18 07:03 Anion Gap 12 mmol/L (2-11) H 01/22/18 07:03 BUN 5 mg/dL (6-24) L 01/22/18 07:03 Creatinine 0.46 mg/dL (0.51-0.95) L 01/22/18 07:03 Est GFR ( Amer) 164.0 (>60) 01/22/18 07:03 Est GFR (Non-Af Amer) 135.5 (>60) 01/22/18 07:03 BUN/Creatinine Ratio 10.9 (8-20) 01/22/18 07:03 Glucose 101 mg/dL (70-100) H 01/22/18 07:03 Lactic Acid 1.4 mmol/L (0.5-2.0) 01/19/18 09:17 Calcium 8.4 mg/dL (8.6-10.3) L 01/22/18 07:03 Magnesium 1.8 mg/dL (1.9-2.7) L 01/22/18 07:03 Total Bilirubin 0.70 mg/dL (0.2-1.0) 01/19/18 09:16 AST 21 U/L (13-39) 01/19/18 10:17 ALT 21 U/L (7-52) 01/19/18 09:16 Alkaline Phosphatase 93 U/L (34-104) 01/19/18 09:16 C-Reactive Protein 8.51 mg/L (<8.01) H 01/19/18 09:16 Total Protein 6.5 g/dL (6.4-8.9) 01/19/18 09:16 Albumin 3.9 g/dL (3.2-5.2) 01/19/18 09:16 Globulin 2.6 g/dL (2-4) 01/19/18 09:16 Albumin/Globulin Ratio 1.5 (1-3) 01/19/18 09:16 Lipase 50 U/L (11.0-82.0) 01/19/18 09:16 Urine Color Yellow 01/19/18 11:33 Urine Appearance Clear 01/19/18 11:33 Urine pH 6.0 (5-9) 01/19/18 11:33 Ur Specific [place] 1.006 (1.010-1.030) L 01/19/18 11:33 Urine Protein Negative (Negative) 01/19/18 11:33 Urine Ketones 2+ (Negative) A 01/19/18 11:33 Urine Blood Negative (Negative) 01/19/18 11:33 Urine Nitrate Negative (Negative) 01/19/18 11:33 Urine Bilirubin Negative (Negative) 01/19/18 11:33 Urine Urobilinogen Negative (Negative) 01/19/18 11:33 Ur Leukocyte Esterase Negative (Negative) 01/19/18 11:33 Urine Glucose Negative (Negative) 01/19/18 11:33 Fluid Source Cerebral spinal 01/23/18 18:08 Fluid Volume 1 mL 01/23/18 18:08 Fluid Color Red 01/23/18 18:08 Fluid Appearance Bloody 01/23/18 18:08 Fluid WBC 39 /mcL H* 01/23/18 18:08 Fluid RBC 48187 /mcL 01/23/18 18:08 Fluid Tot Cell Count 100 01/23/18 18:08 Fluid Neutrophils 87 % 01/23/18 18:08 Fluid Band Neutrophils 3 % 01/23/18 18:08 Fluid Lymphocytes 13 % 01/23/18 18:08 Fluid Monocytes 2 % 01/23/18 18:08 CSF Cell Count Tube # 4 18 18:08 CSF Glucose 78 mg/dL (40-70) H 18 18:08 CSF Total Protein 63 mg/dL (15-45) H 01/23/18 18:08 PHYSICAL EXAM: The patient is awake, alert, and oriented x3. She seems fatigued and chronically ill, but is better than yesterday. Pupils are 3 mm, symmetric, and reactive to light. Visual montesinos are intact by confrontation. EOMI has improved compared to yesterday with better range of motion in both eyes including right gaze movement. There is now less of square wave nystagmus, but more of right beating nystagmus on both left and right gaze. She reports no diplopia on exam. Face is symmetric. V1 to V3 is intact to light touch and pinprick. Tongue is in midline. Palate elevates upwards. Strength is 4+/5 in the proximal muscles in the upper and lower extremities (improved compared to yesterday), other muscles are 5/5 throughout. There is no pronator drift. Finger to nose intact bilaterally (improved compared to yesterday). Rapid alternating movements are intact bilaterally. Gait is cautious, but narrow based , she needs to use a walker for ambulation since last week because she feels unsteady. Assessment and Plan: The patient is a 68-year-old female with history of gastritis and esophagitis with 1 week history of worsening of her nausea and vomiting with sudden onset of diplopia. The patient's subjective diplopia has improved. On exam also there is improvement in the range of motion of the right eyes, including adduction to the right (for which I had a suspicion for 6th nerve palsy.). MRI has been negative. LP has been a traumatic tap, but taking the ratio of RBC/WBC into account seems an unremarkable CSF. I still do not have a good explanation for the patient's symptoms and signs. The patient received a dose of Thiamine. Given her history of chronic alcohol use (at least 2 glasses of wine daily for > 20 years), and her recent GI problems, chronic malnutrition including thiamine deficiency may have played a role. Recommend may be repeating the dose of Thiamine. If the patient's symptoms fluctuate or worsen, I will consider some workup for [employer] autoimmune or paraneoplastic workup. Given the abrupt onset of symptoms these are very unlikely. Neurology continue to follow up.
--- NOTE | 2018-01-24 13:15 | PN ---
Subjective Date of Service: 01/24/18 Interval History: No more visual c/o. She had a syncopal or near-syncopal episode after/during a BM last night and recieved UV fluids. OK today. She refused her PEG this AM. Family History: Unchanged from Admission Social History: Unchanged from Admission Past Medical History: Unchanged from Admission Objective Active Medications: Acetaminophen (Tylenol Adult Liq*) 650 mg PO Q4H PRN PRN Reason: PAIN Last Admin: 01/24/18 09:01 Dose: 650 mg Aspirin (Aspirin Ec Tab*) 81 mg PO DAILY [facility] Last Admin: 01/24/18 08:44 Dose: 81 mg Lidocaine (Lidoderm 5% Patch*) 1 patch TRANSDERM DAILY [facility] Last Admin: 01/24/18 08:42 Dose: 1 patch Magnesium Oxide (Magox 400 Tab*) 400 mg PO DAILY [facility] Last Admin: 01/24/18 08:43 Dose: 400 mg Meclizine HCl (Antivert Tab*) 25 mg PO Q8HR PRN PRN Reason: DIZZINESS Last Admin: 01/23/18 14:57 Dose: 25 mg Omeprazole (Prilosec Cap*) 20 mg PO BID [facility] Ondansetron HCl (Zofran Inj*) 4 mg IV Q6H PRN PRN Reason: NAUSEA Last Admin: 01/23/18 02:45 Dose: 4 mg Pharmacy Profile Note (Lidocaine Patch Remove*) 1 note N/A 2100 [facility] Last Admin: 01/23/18 21:49 Dose: 1 note Polyethylene Glycol/Electrolytes (Miralax*) 17 gm PO BID [facility] Last Admin: 01/24/18 08:43 Dose: Not Given Prochlorperazine (Compazine Tab*) 10 mg PO QID [facility] Last Admin: 01/24/18 12:17 Dose: 10 mg Simethicone (Mylicon Tab*) 80 mg PO BID PRN PRN Reason: . Last Admin: 01/22/18 16:40 Dose: 80 mg Sucralfate (Sucralfate Susp) 1 gm PO 0630,1100,1600,2100 [facility] Last Admin: 01/24/18 10:32 Dose: 1 gm Thiamine HCl (Vitamin B-1 Tab*) 100 mg PO DAILY [facility] Last Admin: 01/24/18 10:43 Dose: 100 mg Vital Signs - 8 hr 01/24/18 01/24/18 01/24/18 05:30 06:05 06:15 Temperature Pulse Rate Respiratory 16 Rate Blood Pressure 84/52 106/62 (mmHg) O2 Sat by Pulse Oximetry 01/24/18 01/24/18 07:31 08:00 Temperature 97.4 F Pulse Rate 90 Respiratory 16 16 Rate Blood Pressure 121/73 (mmHg) O2 Sat by Pulse 96 Oximetry Oxygen Devices in Use Now: None Appearance: Alert, partly up in bed. Flat affect. Looks comfortable. Eyes: No Scleral Icterus Respiratory: Symmetrical Chest Expansion and Respiratory Effort, Clear to Auscultation, Clear to Percussion Cardiovascular: NL Sounds; No Murmurs; No JVD, RRR, No Edema, - Extremities: No Edema, No Clubbing, Cyanosis, - Skin: No Rash or Ulcers, No Nodules or Sclerosis, - Neurological: Alert and Oriented x 3, NL Sensation Result Diagrams: 01/22/18 07:03 01/22/18 07:03 Microbiology and Other Data: Microbiology 01/23/18 18:08 CSF Gram Stain (Tube 3) - Final Cerebral Spinal Fluid CSF Culture - Preliminary No Growth Day 1 01/23/18 17:00 Acid Fast Bacilli Smear - Final Cerebral Spinal Fluid Assess/Plan/Problems-Billing Assessment: Ms. Carlitos Harvey is a 68 y.o female with a PMHX sign HLD and COPD who was recently DX with gastritis and - Patient Problems (1) Acute erosive gastritis Current Visit: Yes Status: Acute Code(s): K29.00 - ACUTE GASTRITIS WITHOUT BLEEDING SNOMED Code(s): 959551959 Comment: severe esophagitis, gastritis, duodenal ulcers, in part related to recent ibuprofen use. - some improvement today- continue full liquid diet - episodes of vomiting improving - Change to po omeprazole 20 mg bid, continue sucralfate QID - APAP for pain, scheduled prochlorperazine for nausea. (2) Hypokalemia Current Visit: Yes Status: Acute Code(s): E87.6 - HYPOKALEMIA SNOMED Code( s): 53676883 Comment: K level 3.4 8/2. BMP 01/25. (3) Hypomagnesemia Current Visit: Yes Status: Acute Code(s): E83.42 - HYPOMAGNESEMIA SNOMED Code(s): 369009667 Comment: magnesium 1.8 on 01/22. Should replete herself with diet if emesis continues to improve. Mag oxide po ordered. Needs outpt fup. (4) Back pain Current Visit: Yes Status: Acute Code(s): M54.9 - DORSALGIA, UNSPECIFIED SNOMED Code(s): 473795055 Comment: APAP ordered, which she uses at home. (5) Diplopia Current Visit: Yes Status: Acute Code(s): H53.2 - DIPLOPIA SNOMED Code(s) : 92909478 Comment: Resolved. Discussed with Dr. Laura. Continue thiamine, may be correcting her problem. Status and Disposition: Discharge home when medically stable
[2018-01-24] MEDS ORDERED: NS 0.9% 1000 ML* 1,000 ML IV ONE ×2 (15:54→19:30)
[2018-01-24] MEDS: Prochlorperazine TAB* 5 MG PO SCH ×2 (16:29→21:06)
[2018-01-24 16:31] LABS: EGFR Non-African American 67.6 (>60)
[2018-01-24] MEDS ORDERED: KCL 20 MEQ/100 ML IVPREMIX* 20 MEQ/100 ML BAG IV SCH (17:00)
[2018-01-24] MEDS: Potassium Chlor TAB* 10 MEQ TAB.ER PO SCH ×2 (17:17→21:06)
[2018-01-24] MEDS: KCL 20 MEQ/100 ML IVPREMIX* 20 MEQ/100 ML BAG IV SCH ×2 (17:18→21:00)
[2018-01-24] MEDS: NS 0.9% 1000 ML* 1,000 ML IV ONE (18:52)
[2018-01-24 19:17] LABS: ABS Basophils 0 10^3/ul (0-0.2); ABS Eosinophils 0 10^3/ul (0-0.6); ABS Lymphocytes 1.5 10^3/ul (1.0-4.8); ABS Neutrophils 4.6 10^3/ul (1.5-7.7); ABS Nucleated RBC 0 10^3/ul; Eosinophil % 0.4 % (0-6); Hematocrit 34 % (35-47); Lymphocyte % 20.6 % (25-47); Mean Corpuscular HGB Conc 36 g/dl (31-36); Mean Corpuscular Hemoglobin 35 pg (27-31); Mean Corpuscular Volume 97 fL (80-97); Nucleated Red Blood Cells % 0.1; Platelet Count 257 10^3/ul (150-450); Red Blood Count 3.46 10^6/ul (4.00-5.40); Red Cell Distribution Width 14 % (10.5-15); White Blood Count 7.1 10^3/ul (3.5-10.8)
[2018-01-24 19:26] LABS: EGFR Non-African American 78.3 (>60)
[2018-01-24] MEDS: Omeprazole CAP* 20 MG PO SCH (21:05)
[2018-01-24] MEDS: Lidocaine Patch REMOVE* 1 NOTE MISC SCH (21:34)
[2018-01-25] MEDS: traMADol TAB* 50 MG PO PRN ×4 (01:09→21:48)
[2018-01-25] MEDS: KCL 10 MEQ/50 ML IVPREMIX* 10 MEQ/50 ML BAG IV SCH ×3 (01:10→03:37)
[2018-01-25] MEDS: Acetaminophen ADULT LIQ* 650 MG/20.3 ML UDC PO PRN ×4 (02:19→18:47)
[2018-01-25] MEDS: Sucralfate SUSP 1 GM/10 ml 10 ML UDC PO SCH ×4 (06:10→19:25)
[2018-01-25 06:17] LABS: EGFR Non-African American 115.1 (>60)
[2018-01-25] MEDS: Prochlorperazine TAB* 5 MG PO SCH ×4 (08:25→21:41)
[2018-01-25] MEDS: Omeprazole CAP* 20 MG PO SCH ×2 (08:25→21:42)
[2018-01-25] MEDS: Aspirin EC TAB* 81 MG TAB.EC PO SCH (08:25)
[2018-01-25] MEDS: Magnesium Oxide TAB* 400 MG PO SCH (08:25)
[2018-01-25] MEDS: Thiamine TAB* 100 MG TAB PO SCH (08:26)
[2018-01-25] MEDS: Potassium Chlor TAB* 10 MEQ TAB.ER PO SCH (08:26)
[2018-01-25] MEDS: Lidocaine PATCH 5%* 1 PATCH TRANSDERM SCH (08:27)
[2018-01-25] MEDS: Polyethylene Glycol 3350* 17 GM PACKET PO SCH (08:30)
--- NOTE | 2018-01-25 09:54 | PN ---
Subjective Date of Service: 01/25/18 Interval History: Pt states cristhian had diploplia yesterday but not today so far. She c/o difficulty sleeping due to frequent interruptions. Not dizzy today on going to and from a chair. Less nausea today. Family History: Unchanged from Admission Social History: Unchanged from Admission Past Medical History: Unchanged from Admission Objective Active Medications: Acetaminophen (Tylenol Adult Liq*) 650 mg PO Q4H PRN PRN Reason: PAIN Last Admin: 01/25/18 06:16 Dose: 650 mg Aspirin (Aspirin Ec Tab*) 81 mg PO DAILY [facility] Last Admin: 01/25/18 08:25 Dose: 81 mg Lidocaine (Lidoderm 5% Patch*) 1 patch TRANSDERM DAILY [facility] Last Admin: 01/25/18 08:27 Dose: 1 patch Magnesium Oxide (Magox 400 Tab*) 400 mg PO DAILY [facility] Last Admin: 01/25/18 08:25 Dose: 400 mg Meclizine HCl (Antivert Tab*) 25 mg PO Q8HR PRN PRN Reason: DIZZINESS Last Admin: 01/23/18 14:57 Dose: 25 mg Omeprazole (Prilosec Cap*) 20 mg PO BID [facility] Last Admin: 01/25/18 08:25 Dose: 20 mg Ondansetron HCl (Zofran Inj*) 4 mg IV Q6H PRN PRN Reason: NAUSEA Last Admin: 01/23/18 02:45 Dose: 4 mg Pharmacy Profile Note (Lidocaine Patch Remove*) 1 note N/A 2100 [facility] Last Admin: 01/24/18 21:34 Dose: 1 note Polyethylene Glycol/Electrolytes (Miralax*) 17 gm PO DAILY [facility] Last Admin: 01/25/18 08:30 Dose: Not Given Potassium Chloride (Klor Con Er Tab*) 20 meq PO BID [facility] Prochlorperazine (Compazine Tab*) 5 mg PO QID [facility] Last Admin: 01/25/18 08:25 Dose: 5 mg Simethicone (Mylicon Tab*) 80 mg PO BID PRN PRN Reason: . Last Admin: 01/22/18 16:40 Dose: 80 mg Sucralfate (Sucralfate Susp) 1 gm PO 0630,1100,1600,2100 [facility] Last Admin: 01/25/18 06:10 Dose: 1 gm Thiamine HCl (Vitamin B-1 Tab*) 100 mg PO DAILY [facility] Last Admin: 01/25/18 08:26 Dose: 100 mg Tramadol HCl (Ultram*) 50 mg PO Q6H PRN PRN Reason: PAIN Last Admin: 01/25/18 08:25 Dose: 50 mg Vital Signs - 8 hr 01/25/18 01/25/18 01/25/18 03:34 03:40 07:29 Temperature 98.0 F 98.0 F Pulse Rate 102 95 Respiratory 20 16 16 Rate Blood Pressure 135/71 136/71 (mmHg) O2 Sat by Pulse 95 96 Oximetry 01/25/18 01/25/18 08:00 08:25 Temperature Pulse Rate Respiratory 16 16 Rate Blood Pressure (mmHg) O2 Sat by Pulse Oximetry Oxygen Devices in Use Now: None Appearance: Alert, sitting on the edge of her bed. In good spirits, more animated/engaged today. Looks comfortable. Eyes: No Scleral Icterus Respiratory: Symmetrical Chest Expansion and Respiratory Effort, Clear to Auscultation, Clear to Percussion Cardiovascular: NL Sounds; No Murmurs; No JVD, RRR, No Edema, - Extremities: No Edema, No Clubbing, Cyanosis, - Skin: No Rash or Ulcers, No Nodules or Sclerosis, - Neurological: Alert and Oriented x 3, NL Sensation Result Diagrams: 01/24/18 19:05 01/25/18 05:43 Microbiology and Other Data: Microbiology 01/23/18 18:08 CSF Gram Stain (Tube 3) - Final Cerebral Spinal Fluid CSF Culture - Preliminary No Growth Day 1 01/23/18 17:00 Acid Fast Bacilli Smear - Final Cerebral Spinal Fluid Assess/Plan/Problems-Billing Assessment: Ms. Carlitos Harvey is a 68 y.o female with a PMHX sign HLD and COPD who was recently DX with gastritis and - Patient Problems (1) Acute erosive gastritis Current Visit: Yes Status: Acute Code(s): K29.00 - ACUTE GASTRITIS WITHOUT BLEEDING SNOMED Code(s): 125695904 Comment: severe esophagitis, gastritis, duodenal ulcers, in part related to recent ibuprofen use. Continues to improve daily, advance to reg diet. Continue omeprazole 20 mg bid, sucralfate QID - APAP for pain, scheduled prochlorperazine decreased to 5 mg qid 01/25. (2) Hypokalemia Current Visit: Yes Status: Acute Code(s): E87.6 - HYPOKALEMIA SNOMED Code( s): 74406219 Comment: K level 3.4 01/22. K+ 3.8 on 01/25, reduce daily KCL dose. (3) Hypomagnesemia Current Visit: Yes Status: Acute Code(s): E83.42 - HYPOMAGNESEMIA SNOMED Code(s): 884686516 Comment: magnesium level addon pending 01/25. Continue mag oxide po. Needs outpt fup. (4) Back pain Current Visit: Yes Status: Acute Code(s): M54.9 - DORSALGIA, UNSPECIFIED SNOMED Code(s): 695033764 Comment: APAP ordered, which she uses at home. (5) Diplopia Current Visit: Yes Status: Acute Code(s): H53.2 - DIPLOPIA SNOMED Code(s) : 66982099 Comment: Resolved. Discussed with Dr. Laura. Continue thiamine, may be correcting her problem. (6) Orthostatic hypotension Current Visit: Yes Status: Acute Code(s): I95.1 - ORTHOSTATIC HYPOTENSION SNOMED Code(s): 77418039 Comment: BP better after 2.5 L NSS 01/24, repeat orthostatics 01/25. Status and Disposition: Discharge home when medically stable
--- NOTE | 2018-01-25 11:12 | PN ---
Progress Note - Progress Note Date of Service: 01/25/18 SOAP: Neurology progress note Date of service: 01/25/18 Subjective: Patient had some more episodes of hypotension last night; received bolus IV fluid + replenished her Potassium by hospitalist team. States had intermittent diplopia last night but not this morning. Overall, she thinks her diplopia has improved. No other new neurological symptoms. Objective: Vital Signs Temp Pulse Resp BP Pulse Ox 98.0 F 95 16 136/71 96 01/25/18 07:29 01/25/18 07:29 01/25/18 08:25 01/25/18 07:29 01/25/18 07:29 Current Medications Acetaminophen (Tylenol Adult Liq*) 650 mg PO Q4H PRN PRN Reason: PAIN Last Admin: 01/25/18 06:16 Dose: 650 mg Aspirin (Aspirin Ec Tab*) 81 mg PO DAILY [facility] Last Admin: 01/25/18 08:25 Dose: 81 mg Lidocaine (Lidoderm 5% Patch*) 1 patch TRANSDERM DAILY [facility] Last Admin: 01/25/18 08:27 Dose: 1 patch Magnesium Oxide (Magox 400 Tab*) 400 mg PO DAILY [facility] Last Admin: 01/25/18 08:25 Dose: 400 mg Meclizine HCl (Antivert Tab*) 25 mg PO Q8HR PRN PRN Reason: DIZZINESS Last Admin: 01/23/18 14:57 Dose: 25 mg Omeprazole (Prilosec Cap*) 20 mg PO BID [facility] Last Admin: 01/25/18 08:25 Dose: 20 mg Ondansetron HCl (Zofran Inj*) 4 mg IV Q6H PRN PRN Reason: NAUSEA Last Admin: 01/23/18 02:45 Dose: 4 mg Pharmacy Profile Note (Lidocaine Patch Remove*) 1 note N/A 2100 [facility] Last Admin: 01/24/18 21:34 Dose: 1 note Polyethylene Glycol/Electrolytes (Miralax*) 17 gm PO DAILY [facility] Last Admin: 01/25/18 08:30 Dose: Not Given Potassium Chloride (Klor Con Er Tab*) 20 meq PO BID [facility] Prochlorperazine (Compazine Tab*) 5 mg PO QID [facility] Last Admin: 01/25/18 08:25 Dose: 5 mg Simethicone (Mylicon Tab*) 80 mg PO BID PRN PRN Reason: . Last Admin: 01/22/18 16:40 Dose: 80 mg Sucralfate (Sucralfate Susp) 1 gm PO 0630,1100,1600,2100 [facility] Last Admin: 01/25/18 06:10 Dose: 1 gm Thiamine HCl (Vitamin B-1 Tab*) 100 mg PO DAILY [facility] Last Admin: 01/25/18 08:26 Dose: 100 mg Tramadol HCl (Ultram*) 50 mg PO Q6H PRN PRN Reason: PAIN Last Admin: 01/25/18 08:25 Dose: 50 mg Laboratory Last Values WBC 7.1 10^3/ul (3.5-10.8) 01/24/18 19:05 RBC 3.46 10^6/ul (4.00-5.40) L 01/24/18 19:05 Hgb 12.0 g/dl (12.0-16.0) 01/24/18 19:05 Hct 34 % (35-47) L 01/24/18 19:05 MCV 97 fL (80-97) 01/24/18 19:05 MCH 35 pg (27-31) H 01/24/18 19:05 MCHC 36 g/dl (31-36) 01/24/18 19:05 RDW 14 % (10.5-15) 01/24/18 19:05 Plt Count 257 10^3/ul (150-450) 01/24/18 19:05 MPV 8.0 um3 (7.4-10.4) 01/24/18 19:05 Neut % (Auto) 65.0 % (38-83) 01/24/18 19:05 Lymph % (Auto) 20.6 % (25-47) L 01/24/18 19:05 [place] % (Auto) 13.5 % (0-7) H 01/24/18 19:05 Eos % (Auto) 0.4 % (0-6) 01/24/18 19:05 Baso % (Auto) 0.5 % (0-2) 01/24/18 19:05 Absolute Neuts (auto) 4.6 10^3/ul (1.5-7.7) 01/24/18 19:05 Absolute Lymphs (auto) 1.5 10^3/ul (1.0-4.8) 01/24/18 19:05 Absolute Monos (auto) 1.0 10^3/ul (0-0.8) H 01/24/18 19:05 Absolute Eos (auto) 0 10^3/ul (0-0.6) 01/24/18 19:05 Absolute Basos (auto) 0 10^3/ul (0-0.2) 01/24/18 19:05 Absolute Nucleated RBC 0 10^3/ul 01/24/18 19:05 Nucleated RBC % 0.1 01/24/18 19:05 Sodium 139 mmol/L (135-145) 01/25/18 05:43 Potassium 3.8 mmol/L (3.5-5.0) 01/25/18 05:43 Chloride 111 mmol/L (101-111) 01/25/18 05:43 Carbon Dioxide 23 mmol/L (22-32) 01/25/18 05:43 Anion Gap 5 mmol/L (2-11) 01/25/18 05:43 BUN 13 mg/dL (6-24) 01/25/18 05:43 Creatinine 0.53 mg/dL (0.51-0.95) 01/25/18 05:43 Est GFR ( Amer) 139.2 (>60) 01/25/18 05:43 Est GFR (Non-Af Amer) 115.1 (>60) 01/25/18 05:43 BUN/Creatinine Ratio 24.5 (8-20) H 01/25/18 05:43 Glucose 98 mg/dL (70-100) 01/25/18 05:43 Lactic Acid 1.4 mmol/L (0.5-2.0) 01/19/18 09:17 Calcium 9.1 mg/dL (8.6-10.3) 01/25/18 05:43 Magnesium 1.9 mg/dL (1.9-2.7) 01/25/18 00:08 Total Bilirubin 0.70 mg/dL (0.2-1.0) 01/19/18 09:16 AST 21 U/L (13-39) 01/19/18 10:17 ALT 21 U/L (7-52) 01/19/18 09:16 Alkaline Phosphatase 93 U/L (34-104) 01/19/18 09:16 C-Reactive Protein 8.51 mg/L (<8.01) H 01/19/18 09:16 Total Protein 6.5 g/dL (6.4-8.9) 01/19/18 09:16 Albumin 3.9 g/dL (3.2-5.2) 01/19/18 09:16 Globulin 2.6 g/dL (2-4) 01/19/18 09:16 Albumin/Globulin Ratio 1.5 (1-3) 01/19/18 09:16 Lipase 50 U/L (11.0-82.0) 01/19/18 09:16 Cortisol 14.95 mcg/dL 01/24/18 16:08 Urine Color Yellow 01/19/18 11:33 Urine Appearance Clear 01/19/18 11:33 Urine pH 6.0 (5-9) 01/19/18 11:33 Ur Specific [place] 1.006 (1.010-1.030) L 01/19/18 11:33 Urine Protein Negative (Negative) 01/19/18 11:33 Urine Ketones 2+ (Negative) A 01/19/18 11:33 Urine Blood Negative (Negative) 01/19/18 11:33 Urine Nitrate Negative (Negative) 01/19/18 11:33 Urine Bilirubin Negative (Negative) 01/19/18 11:33 Urine Urobilinogen Negative (Negative) 01/19/18 11:33 Ur Leukocyte Esterase Negative (Negative) 01/19/18 11:33 Urine Glucose Negative (Negative) 01/19/18 11:33 Fluid Source Cerebral spinal 01/23/18 18:08 Fluid Volume 1 mL 01/23/18 18:08 Fluid Color Red 01/23/18 18:08 Fluid Appearance Bloody 01/23/18 18:08 Fluid WBC 39 /mcL H* 01/23/18 18:08 Fluid RBC 21268 /mcL 01/23/18 18:08 Fluid Tot Cell Count 100 01/23/18 18:08 Fluid Neutrophils 87 % 01/23/18 18:08 Fluid Band Neutrophils 3 % 01/23/18 18:08 Fluid Lymphocytes 13 % 01/23/18 18:08 Fluid Monocytes 2 % 01/23/18 18:08 CSF Cell Count Tube # 4 01/23/18 18:08 CSF Glucose 78 mg/dL (40-70) H 01/23/18 18:08 CSF Total Protein 63 mg/dL (15-45) H 01/23/18 18:08 PHYSICAL EXAM: The patient is awake, alert, and oriented x3. She seems fatigued and chronically ill, but is better than yesterday. Pupils are 3 mm, symmetric, and reactive to light. Visual montesinos are intact by confrontation. EOMI has improved compared to the past 2 days with better range of motion in both eyes including right gaze movement of the right eye. The square wave nystagmus has disappeared now, still has right beating nystagmus on both left and right gaze, better than previous day. She reports no diplopia on exam. Face is symmetric. V1 to V3 is intact to light touch and pinprick. Tongue is in midline. Palate elevates upwards. Strength is 4+/5 in the proximal muscles in the upper and lower extremities (improved compared to previous day), other muscles are 5/5 throughout. There is no pronator drift. Finger to nose intact bilaterally. Rapid alternating movements are intact bilaterally. Gait is cautious, but narrow based, she needs to use a walker for ambulation since last week because she feels unsteady. Assessment and Plan: The patient is a 68-year-old female with history of gastritis and esophagitis with 1 week history of worsening of her nausea and vomiting with sudden onset of diplopia. The patient's subjective diplopia has improved. On exam also there is improvement in the range of motion of the right eye, including adduction to the right (for which I had a suspicion for 6th nerve palsy.). MRI has been negative. LP has been a traumatic tap, but taking the ratio of RBC/WBC into account seems an unremarkable CSF. I still do not have a good explanation for the patient's diplopia. She now has been receiving daily dose Thiamine. Given her history of chronic alcohol use (at least 2 glasses of wine daily for > 20 years), and her recent GI problems, chronic malnutrition including thiamine deficiency may have played a role. If the patient's symptoms fluctuate or worsen, may consider some workup for [employer] autoimmune or paraneoplastic workup. Given the abrupt onset of symptoms these are very unlikely.
[2018-01-25] MEDS: Lidocaine Patch REMOVE* 1 NOTE MISC SCH (21:41)
[2018-01-25] MEDS: Potassium Chlor TAB* 20 MEQ TAB.ER PO SCH (21:42)
[2018-01-26] MEDS: Acetaminophen ADULT LIQ* 650 MG/20.3 ML UDC PO PRN (01:16)
[2018-01-26] MEDS: traMADol TAB* 50 MG PO PRN ×2 (03:53→10:13)
[2018-01-26] MEDS: Sucralfate SUSP 1 GM/10 ml 10 ML UDC PO SCH ×2 (05:37→12:13)
[2018-01-26] MEDS: Omeprazole CAP* 20 MG PO SCH (09:42)
[2018-01-26] MEDS: Lidocaine PATCH 5%* 1 PATCH TRANSDERM SCH (09:42)
[2018-01-26] MEDS: Prochlorperazine TAB* 5 MG PO SCH ×2 (09:43→13:28)
[2018-01-26] MEDS: Polyethylene Glycol 3350* 17 GM PACKET PO SCH ×2 (09:44→09:48)
[2018-01-26] MEDS: Potassium Chlor TAB* 20 MEQ TAB.ER PO SCH (09:44)
[2018-01-26] MEDS: Thiamine TAB* 100 MG TAB PO SCH (09:44)
[2018-01-26] MEDS: Magnesium Oxide TAB* 400 MG PO SCH (09:48)
[2018-01-26] MEDS: Aspirin EC TAB* 81 MG TAB.EC PO SCH (09:48)
[2018-01-26 12:04] VITALS: BP 140/87
--- NOTE | 2018-01-26 21:18 | DS ---
CC: Dr. Giovani Anderson * DISCHARGE SUMMARY: DATE OF ADMISSION: DATE OF DISCHARGE: 01/26/18 HOSPITAL COURSE: This 68-year-old old woman presented with nausea and vomiting and weight loss. She has been recently diagnosed, with an endoscopy on 01/14/18 , with severe distal esophagitis, distal esophageal strictures with endoscopic dilatation with mild tearing, moderate gilmore gastritis and erosions and biopsies, several clean- based duodenal ulcers. The patient has been taking sucralfate and pantoprazole at home; unfortunately, I think she was also taking ibuprofen and may have been drinking alcohol possibly to excess as well. After few days of nausea and vomiting quieted down, she did develop diplopia. She was evaluated by the neurologist. She had CT of the brain, MRI of the brain , and MRA of the head, possibly her chronic alcoholism and a period of vomiting and very poor intake precipitated B1 deficiency. She was given 500 mg B1 IV. She seemed to improve, although on day of discharge, she said she still had diplopia; however, her overall oral intake was good, she was feeling much better. She had been on prochlorperazine for a while, this is going to be made p.r.n. She had low magnesium, potassium. She will continue on replacement for these. FINAL DIAGNOSES: 1. Acid peptic disease. 2. Hypokalemia. 3. Hypomagnesemia. 4. Possible alcohol abuse. 5. Back pain. 6. Diplopia. DISCHARGE MEDICATIONS: 1. Aspirin 81 mg daily. 2. Magnesium oxide 400 mg daily. 3. Thiamine 100 mg daily. 4. Prochlorperazine 5 mg four times a day p.r.n. 5. Acetaminophen 650 mg every 6 hours p.r.n. 6. Pantoprazole 40 mg b.i.d. 7. Sucralfate suspension 10 mL four times a day. 8. Ondansetron ODT 4 mg every 8 hours p.r.n. 9. Potassium chloride 10 mEq b.i.d. DISCHARGE FOLLOWUP: The patient will be given an appointment to either primary care physician or the [facility]. She will see Dr. Giovani Anderson in 3 to 4 weeks. [id number]/[facility] #: [id number] [facility]
--- NOTE | 2018-01-26 21:26 | PN ---
NEUROLOGY PROGRESS NOTE: DATE OF SERVICE: 01/26/18 PRIMARY PROVIDER: Manoj Davila MD BRIEF HISTORY: This is a 68-year-old female that was evaluated by Dr. Laura for double vision. Double vision started on 01/22/18. The patient does have a history of esophagitis and gastritis, has been having nausea and vomiting for 1 week. The double vision seemed to have started a few days after her GI illness. She was started on IV thiamine supplementation, was given one-time bolus of 500 mg IV. SUBJECTIVE: Today, the patient stated that she is feeling better. The double vision is still there, but not as severe as her initial presentation. The double vision is worse when looking at distant objects or looking towards the right. She denied any headaches. She denied any focal weakness or paresthesias. Interestingly, the patient did endorse drinking alcohol daily for more than 20 years. She drinks 2-3 glasses of wine daily. The patient during the examination did not allow me to touch her feet. She does not know if she has neuropathy or not, but she did endorse gait imbalance over the last 1-2 weeks. REVIEW OF SYSTEMS: She denied any chest pain, shortness of breath, or palpitations. She denied any nausea or vomiting. MEDICATIONS: 1. Acetaminophen 650 mg p.o. every 4 hours as needed. 2. Aspirin 81 mg p.o. daily. 3. Lidocaine patch transdermal patch daily. 4. Magnesium oxide 400 mg p.o. daily. 5. Meclizine 25 mg as needed every 8 hours for dizziness. 6. Omeprazole 20 mg by mouth twice daily. 7. Ondansetron 4 mg IV every 6 hours as needed. 8. MiraLax 17 g p.o. daily. 9. Potassium chloride 20 mEq p.o. twice daily. 10. Prochlorperazine 5 mg by mouth 4 times daily. 11. Mylicon 80 mg by mouth twice daily. 12. Sucralfate 1 g by mouth 4 times daily. 13. Thiamine 100 mg by mouth daily. 14. Tramadol 50 mg by mouth every 6 hours as needed for pain. LABORATORY DATA: TSH 0.6, free T4 of 1.12, C-reactive protein 8.51. I reviewed the CSF analysis that was unremarkable except for slight elevation in total protein which again can be related to a traumatic lumbar puncture. PHYSICAL EXAMINATION: Vital Signs: Temperature 97.6, heart rate of 100, respiratory rate of 16, blood pressure has been on the lower range 2 days ago but has improved significantly today and is 128/82. General: Frail ill- appearing female in no acute distress. Head is atraumatic, normocephalic without any obvious abnormality. Eyes: Conjunctivae/corneas are clear. Neck is supple and symmetrical with no carotid bruits. Lungs are clear to auscultation bilaterally. Nonlabored breathing. Cardiovascular: Regular rhythm. Normal S1, S2. Extremities: Normal range of motion with no cyanosis, hammertoes, or high arches. Neurological Examination: Mental status: Awake, alert and oriented to person, place, and time. She had trouble telling me her age but she recently had her birthday a week and a half ago. Her speech is slightly hesitant and worried but she has no aphasia or dysarthria. Cranial nerves: She has horizontal nystagmus towards the right gaze involving both eye movements, but worse on the right eye. She did report diplopia which is horizontally based that resolves with one eye closure. She had normal sensation in the face bilaterally. She has no facial droop. Tongue is symmetric and midline with no evidence of atrophy. Motor: Right/left, no abnormal movements. No pronator drift. She has normal strength in the upper and lower extremities symmetrically bilaterally. Reflexes trace throughout, 0 at the knees and ankles bilaterally. Sensation, distal to proximal sensory gradient up to the knees bilaterally. She has absent vibration at the toes, reduced at the medial malleolus at 3 seconds bilaterally. Proprioception is intact at the great toes. Coordination, normal [id number] and rapid alternating movement. Gait: Wide-based gait, cautious, antalgic, required a walker. ASSESSMENT AND RECOMMENDATIONS: Ms. Zoila Miller is a 68-year-old female with history of alcohol dependency, gastritis, esophagitis, who had a 1- week history of nausea and vomiting, followed by a new onset bilateral horizontal diplopia. It was thought that she may have right lateral rectus palsy. She is not diabetic. Intracranial images such as an MRI and an MRA were performed and were unremarkable. CSF analysis was obtained and it was also unremarkable except for a slight elevation in protein and WBC in the setting of a traumatic tap. The patient did receive thiamine and she reports feeling slightly better. Therefore, the likely cause of her diplopia is thiamine deficiency. Other differential diagnoses include vitamin B12 deficiency or microvascular infarct in the right lateral rectus muscle. She has no evidence of neuromuscular junction disorder. Interestingly, the patient had trouble with vertical gaze palsy, mostly looking upright. She also has significant neuropathy on examination, which she was unaware of. I suspect the neuropathy is also related to her chronic malnourishment and possibly related to thiamine versus a B12 deficiency. I have ordered a vitamin B12 level to be added on to the current labs. She was discharged with an established followup with Dr. Giovani Anderson in 3 to 4 weeks. I will follow up with the labs and, if her B12 is low, I will correct it. If her symptoms do not improve or she has worsening neuropathy, other causes such as Meléndez-Wilson syndrome should be considered. On further assessment, the patient also has some impairment in her memory. She did not want to cooperate with the examiner today as she got extremely upset when the sensory examination on her feet was performed due to her peripheral neuropathy. I encouraged her to discuss this further with Dr. Anderson when evaluated, but I suspect the patient has a component of a neurodegenerative disorder. TIME SPENT: I spent a total of 25 minutes and greater than 50% of that was spent directly reviewing the medical chart, obtaining further history, examining the patient, education and counseling, and discussing the treatment plan with the primary team provider. [id number]/[facility] #: [id number] [facility]iot
== END 2018-01-26 14:03 | disposition home or self-care (01) | DRG 384 ==
LOC: ED 08:20 → MED 12:15 → OBSVTOIN 01-21 15:00 → MEDTELE 01-22 23:50
PROVIDERS: ADMIT Hospitalist; ATTEND Internal Medicine
PROC: 009U3ZX Drainage of Spinal Canal, Percutaneous Approach, Diagnostic (ICD-10-PCS; principal; 2018-01-23 16:15)
DX: K25.3 Acute gastric ulcer without hemorrhage or perforation (principal); K22.10 Ulcer of esophagus without bleeding; E46 Unspecified protein-calorie malnutrition; E51.9 Thiamine deficiency, unspecified; H53.2 Diplopia; E83.42 Hypomagnesemia; K22.2 Esophageal obstruction; G62.9 Polyneuropathy, unspecified; J44.9 Chronic obstructive pulmonary disease, unspecified; E87.6 Hypokalemia; F10.20 Alcohol dependence, uncomplicated; I95.1 Orthostatic hypotension; E78.5 Hyperlipidemia, unspecified; K44.9 Diaphragmatic hernia without obstruction or gangrene; M54.9 Dorsalgia, unspecified; Z79.1 Long term (current) use of non-steroidal anti-inflammatories (NSAID); Z79.899 Other long term (current) drug therapy; Z82.49 Family history of ischemic heart disease and other diseases of the circulatory system; Z87.891 Personal history of nicotine dependence; Z68.21 Body mass index [BMI] 21.0-21.9, adult; Z86.19 Personal history of other infectious and parasitic diseases
CPT/HCPCS: 36415; 62270; 70450; 70544; 70551; 74019; 80048; 80053; 81003; 82533; 82607; 82941; 82945; 83605; 83690; 83735; 83916; 84132; 84157; 85025; 85027; 86140; 87070; 87116; 87205; 87206; 89051; 99283; A9270-GY; G0378; J0780; J2270; J2405; J3411; J3475; J3480; Q0164

== ENCOUNTER 2018-10-10 08:40 | Emergency (ER) | payer MEDICARE ==
--- OUTSIDE RECORDS SUMMARY | 2018-10-10 08:46 | XMS REPORT | Continuity of Care Document ---
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 Onset: 02/02/2018 Thiamin deficiency Amado Cotton MD Active Onset: 02/02/2018 Diplopia Amado Cotton MD Active Onset: 02/02/2018 Alcoholic polyneuropathy Amado Cotton MD Active Onset: 01/14/2018 Stricture of esophagus Magdalena Angeles NP Active Onset: 02/12/2018 Chronic obstructive lung Gonzalo Murrieta, Active disease MMyles,FACP Onset: 03/25/2018 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 Inactive Inactive: 02/12/2018 Onset: 01/20/2018 Acute gastritis Magdalena Angeles, HOSPICE EXECUTIVE DIRECTOR Inactive Inactive: 02/12/2018 Onset: 01/19/2018 Ulcer of esophagus Carmella Ramey D.O. Resolved Resolved: 04/30/2018 Family History Date Family Member(s) Observation Comments Father due to Unknown Causes () - estranged Mother due to Motor Vehicle Accident () Siblings None Social History Type Date Description Comments Sex Unknown Marital Status Lives With Occupation Retired Hand Dominance Right-handed Cigarette Use Quit - Age 63 ETOH Use 04/30/2018 Denies alcohol use Tobacco Use Start: Unknown End: Patient is a former smoker Unknown Recreational Drug Use Denies Drug Use Smoking Status Reviewed: 09/21/18 Patient is a former smoker Exercise Type/Frequency Negative For Does not exercise Allergies, Adverse Reactions, Alerts Description No Known Drug Allergies Medications Medication Date Status Form Strength Qnty SIG Indications Ordering Provider Doxycycline 09/21/ Active Tablets DR 200mg 1tabs take one S00.06xA María Hyclate 2019 tablet by MD Mehdi mouth Lidoderm 07/03/ Active Patches 5% 30unit Apply one M54.5 Gonzalo 2018 s patch Daniel Murrieta, every day Eleazar,FACAlla for up to 12 hours. Gabapentin 06/09/ Active Capsules 300mg 180cap 1 po bid Omer S. 2017 s and 2 qhs Srinivasan, for 1 week M.D. then 2 qam and qhs and 1 in PM for 1 wk then 2 tid B Complex 03/18/ Active Capsules 90caps 1 by mouth E51.2 Omer S. 2017 every day Eleazar Mattson Aspir-Low / Active Tablets DR 81mg 1 by mouth Unknown 0000 every day Magnesium Oxide / Active Capsules 400mg 90caps 1 by mouth Angy Matthews -MG Supplement 0000 every day Daniel Murrieta M.D.,FACP Thiamine HCL / Active Tablets 100mg 90tabs 1 by mouth Gonzalo 0000 every day Daniel Murrieta M.D.,FACP Protonix / Active Tablets DR 40mg 60tabs 1 by mouth Gonzalo 0000 twice a Daniel Murrieta, day Eleazar,FACP Zofran / Active Tablets 4mg take 1 by Unknown 0000 mouth every 8 hrs as needed for nausea Acetaminophen 00/ Active Tablets ER 650mg 1 tab by Unknown ER 0000 mouth q4 hours as needed pain Potassium 0000/ Active Tablets ER 20Meq 90tabs take 1/2 Gonzalo Chloride Claudine 0000 tablet by Daniel Murrieta, ER mouth M.D.,FACP twice a day Acetaminophen / Active Tablets 325mg 2 tablets Unknown 0000 po qam and 2 tabs as needed in afternoon Gabapentin 04/30/ Hx Capsules 100mg 240cap take 2 Gonzalo 2018 - s capsule by Daniel Murrieta, 06/09/ mouth 4 M.D.,FACP 2018 times a day Gabapentin 03/24/ Hx Capsules 100 90caps take one Johnson 2018 - capsule by Ranjan 04/30/ mouth 4 Nevarez, 2018 times a M.D., day [facility] Gabapentin 02/12/ Hx Capsules 100mg 240cap 2 by mouth E51.9 Gonzalo 2018 - s 4 times a Daniel Murrieta, 03/17/ day M.DCheco,FACP 2018 Gabapentin 02/02/ Hx Capsules 100mg 60caps take 2 E51.9 Amado 2018 - tabs twice MD Yury 02/12/ a day 2018 Potassium / Hx Tablets 1 by mouth Unknown Chloride 0000 - twice everyday 2018 Compazine / Hx Tablets 5mg one by Unknown 0000 - mouth 04/30/ every 4 2018 hours as needed nausea-- didnt fill, prefers zofran Carafate / Hx Suspension 1GM/10ML 420ml give 10ml Amado 0000 - by mouth MD Yury 03/25/ four times 2018 a day Medications Administered in Office Medication Date Status Form Strength Qnty SIG Indications Ordering Provider Inj, Administered Injection Johnson Woodruff Regadenoson, 018 Roque, 0.1 MG Eleazar, REBECCA, VALE Technetium TC Administered Injection Johnson Woodruff 99M 018 Eric NevarezofEleazra read, [facility], Per Unit Dose FASDEVORAH Up To 40 Millicuries Immunizations CPT Code Status Date Vaccine Reaction Lot # [id number] Given 07/03/2018 Tdap - no immediate reaction [id number] Tetanus/Diptheria/Acellular noted Pertussis 80816 Given 04/30/2018 Pneumococcal Conjugate No immed. reaction [id number] Vaccine 13 Valent For noted. Intramuscular Use 83681 Given 04/14/2018 Fluzone High Dose Vital Signs Date Vital Result Comment 09/21/2018 1:49pm Height 65.5 inches 5'5.50" Weight 126.00 lb Heart Rate 78 /min BP Systolic Sitting 152 mmHg BP Diastolic Sitting 76 mmHg Body Temperature 97.7 F O2 % BldC Oximetry 97 % BMI (Body Mass Index) 20.6 kg/m2 07/03/2018 10:09am Height 65.5 inches 5'5.50" Weight 126.12 lb Heart Rate 85 /min BP Systolic 122 mmHg BP Diastolic 72 mmHg Body Temperature 97.7 F O2 % BldC Oximetry 96 % BMI (Body Mass Index) 20.7 kg/m2 06/09/2018 9:57am Height 65.5 inches 5'5.50" Weight 123.00 lb Heart Rate 88 /min BP Systolic Sitting 112 mmHg BP Diastolic Sitting 70 mmHg Respiratory Rate 15 /min BMI (Body Mass Index) 20.2 kg/m2 04/30/2018 8:34am Height 65.5 inches 5'5.50" Weight 123.00 lb BP Systolic 140 mmHg BP Diastolic 90 mmHg BMI (Body Mass Index) 20.2 kg/m2 03/25/2018 9:39am Height 65.5 inches 5'5.50" Weight 122.00 lb BP Systolic Sitting 100 mmHg reg cuff la BP Diastolic Sitting 90 mmHg reg cuff la BP Systolic Standing 100 mmHg BP Diastolic Standing 84 mmHg Respiratory Rate 15 /min Pain Level 4 lower ext neuropathy O2 % BldC Oximetry 98 % BMI (Body Mass Index) 20.0 kg/m2 03/18/2018 10:47am Height 65.5 inches 5'5.50" Weight 123.38 lb Heart Rate 68 /min BP Systolic 128 mmHg BP Diastolic 86 mmHg BMI (Body Mass Index) 20.2 kg/m2 02/12/2018 8:51am Height 65.5 inches 5'5.50" Weight 126.00 lb Heart Rate 119 /min BP Systolic Sitting 102 mmHg BP Diastolic Sitting 58 mmHg Body Temperature 97.1 F O2 % BldC Oximetry 97 % BMI (Body Mass Index) 20.6 kg/m2 02/02/2018 12:25pm Height 65.5 inches 5'5.50" Weight 128.00 lb Heart Rate 110 /min radial irr. BP Systolic 118 mmHg BP Diastolic 97 mmHg BP Systolic Sitting 121 mmHg BP Diastolic Sitting 84 mmHg Body Temperature 97.4 F Pain Level 7 Le O2 % BldC Oximetry 100 % BMI (Body Mass Index) 21.0 kg/m2 Results Test Date Facility Test Result H/L Range Note Lipid Profile 07/01/2018 [facility] Triglycerides 156 mg/dL 1 (Trig/Chol/HDL) [address] [place] [address] [phone] Cholesterol 243 mg/dL 2 HDL Cholesterol 58.9 mg/dL 3 LDL Cholesterol 153 mg/dL 4 Comp Metabolic Panel 07/01/2018 [facility] Sodium 139 mmol/L N 135-145 [address] [place] [address] [phone] Potassium 4.8 mmol/L N 3.5-5.0 Chloride 104 mmol/L N 101-111 Co2 Carbon Dioxide 30 mmol/L N 22-32 Anion Gap 5 mmol/L N 2-11 Glucose 86 mg/dL N 70-100 Blood Urea Nitrogen 14 mg/dL N 6-24 Creatinine 0.65 mg/dL N 0.51-0.95 BUN/Creatinine Ratio 21.5 High 8-20 Calcium 9.7 mg/dL N 8.6-10.3 Total Protein 6.5 g/dL N 6.4-8.9 Albumin 4.3 g/dL N 3.2-5.2 Globulin 2.2 g/dL N 2-4 Albumin/Globulin Ratio 2.0 N 1-3 Total Bilirubin 0.40 mg/dL N 0.2-1.0 Alkaline Phosphatase 72 U/L N 34-104 Alt 10 U/L N 7-52 Ast 14 U/L N 13-39 Egfr Non- 90.9 >60 Egfr 110.0 >60 5 Hepatitis C Antibody 07/01/2018 [facility] HCV Index < 0.[address] [place] [address] [phone] Hepatitis C Antibody Nonreactive Nonreactive Laboratory 07/01/2018 [facility] Vitamin B1 244 Abnormal 70- 180 6 test finding 101 (Whole Blood) nmol/[place] [address] [phone] Laboratory 04/24/2018 [facility] Hemoglobin 4.7 % N 4.0-5.6 7 , 8 test finding A1c ([place] [address] HGB) [phone] Spep Protein 04/24/2018 [facility] Total 6.1 g/dL Abnormal 6.3 - 7.9 Electro, 101 Protein(Pep) [place] [address] [phone] Albumin 3.0 g/dL Abnormal 3.4-4.7 Alpha-1 Globulin 0.4 g/dL Abnormal 0.1-0.3 Alpha-2 Globulin 1.1 g/dL Abnormal 0.6-1.0 Beta Globulin 0.8 g/dL 0.7-1.2 Gamma Globulin 0.8 g/dL 0.6-1.6 Albumin/Globulin Ratio 0.99 Impression See Comment 9 Carnitine 04/24/2018 [facility] Total 31 nmol/mL Abnormal 34- 78 Total And Free [facility] [place] [address] [phone] Free Carnitine 18 nmol/mL Abnormal 25-54 Acylcarnitine 13 nmol/mL 5-30 Acylcarn/Free Carnitine Ratio 0.7 0.1-0.8 Carnitine Interpretation See Comment 10 Vitamin B12 And 04/24/2018 [facility] Vitamin B12 344 pg/mL N 180-914 11 [place] [address] [phone] Folic Acid (Folate) 8.00 ng/mL >3.99 12 Laboratory test 04/24/2018 [facility] Vitamin B1 145 nmol/L 70-180 13 finding (Whole Blood) [place] [address] [phone] CMP Panel 04/24/2018 [facility] Sodium 139 mmol/L N 135-145 [place] [address] [phone] Potassium 4.5 mmol/L N 3.5-5.0 Chloride 103 mmol/L N 101-111 Co2 Carbon Dioxide 28 mmol/L N 22-32 Anion Gap 8 mmol/L N 2-11 Glucose 82 mg/dL N 70-100 Blood Urea Nitrogen 7 mg/dL N 6-24 Creatinine 0.62 mg/dL N 0.51-0.95 BUN/Creatinine Ratio 11.3 N 8-20 Calcium 9.7 mg/dL N 8.6-10.3 Total Protein 5.7 g/dL Low 6.4-8.9 Albumin 3.6 g/dL N 3.2-5.2 Globulin 2.1 g/dL N 2-4 Albumin/Globulin Ratio 1.7 N 1-3 Total Bilirubin 0.50 mg/dL N 0.2-1.0 Alkaline Phosphatase 62 U/L N 34-104 Alt 13 U/L N 7-52 Ast 23 U/L N 13-39 Egfr Non- 96.0 >60 Egfr 116.2 >60 14 Laboratory test 04/24/2018 [facility] Creatine 32 U/L N 10- 223 [address] Kinase(CK) [place] [address] [phone] TSH (Thyroid Stim Horm) 0.53 mcIU/mL N 0.34-5.60 16 Laboratory test 03/27/2018 [facility] Surgical SEE RESULT [address] [place] [address] [phone] 1 Desirable: <150 Borderline High: 150-199 High: 200-499 Very High: >500 2 Desirable: <200 Borderline High: 200-239 High: >239 3 Low: <40 Desirable: 40-60 High: >60 4 Desirable: <100 Near Optimal: 100-129 Borderline High: 130-159 High: 160-189 Very High: >189 5 Because ethnic data is not always readily available, this report includes an eGFR for both -Americans and non- Americans. The National Kidney Disease Education Program (NKDEP) does not endorse the use of the MDRD equation for patients that are not between the ages of 18 and 70, are , have extremes of body size, muscle mass, or nutritional status, or are non- or non-. According to the National Kidney Foundation, irrespective of diagnosis, the stage of the disease is based on the level of kidney function: Stage Description GFR(mL/min/1.73 m(2)) 1 Kidney damage with normal or decreased GFR 90 2 Kidney damage with mild decrease in GFR 60-89 3 Moderate decrease in GFR 30-59 4 Severe decrease in GFR 15-29 5 Kidney failure <15 (or dialysis) 6 ADDITIONAL INFORMATION This test was developed and its performance characteristics determined by [facility] in a manner consistent with CLIA requirements. This test has not been cleared or approved by the U.S. Food and Drug Administration. Test Performed by: [facility] [place] [address] 7 FASTING 8 Therapeutic target for the treatment of diabetes mellitus patients is <7% HBA1C, and in selective patients <6.0%. Please refer to [place] Diabetes Association diabetic care guidelines for further information. 9 RESULT: No apparent monoclonal protein on serum electrophoresis. Test Performed by: [facility] [place] [address] 10 In this sample, the total and free carnitine fractions were moderately reduced, with no accumulation of esterified species. 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 ADDITIONAL INFORMATION This test was developed and its performance characteristics determined by [facility] in a manner consistent with CLIA requirements. This test has not been cleared or approved by the U.S. Food and Drug Administration. Test Performed by: [facility] [place] [id number] 11 Normal Range 180 to 914 Indeterminate Range 145 to 180 Deficient Range <145 12 FASTING 13 ADDITIONAL INFORMATION This test was developed and its performance characteristics determined by [facility] in a manner consistent with CLIA requirements. This test has not been cleared or approved by the U.S. Food and Drug Administration. Test Performed by: [facility] [place] [address] 14 Because ethnic data is not always readily available, this report includes an eGFR for both -Americans and non- Americans. The National Kidney Disease Education Program (NKDEP) does not endorse the use of the MDRD equation for patients that are not between the ages of 18 and 70, are , have extremes of body size, muscle mass, or nutritional status, or are non- or non-. According to the National Kidney Foundation, irrespective of diagnosis, the stage of the disease is based on the level of kidney function: Stage Description GFR(mL/min/1.73 m(2)) 1 Kidney damage with normal or decreased GFR 90 2 Kidney damage with mild decrease in GFR 60-89 3 Moderate decrease in GFR 30-59 4 Severe decrease in GFR 15-29 5 Kidney failure <15 (or dialysis) 15 FASTING 16 FASTING 17 SEE RESULT BELOW Name: LOVELY PHILLIPS : [address]: Kingsley Huang DO Acct: [id number] Unit: [id number] AGE: 68 Location: ENDO Re03/27/18 SEX: F Status: DEP REF SPEC: [id number] HARPER: 03/27/18- SUBM DR: Kingsley Huang DO REQ: [id number] RECD: 03/27/18 STATUS: NATHANIEL FUENTES DR: Gonzalo Murrieta MD _ ORDERED: LEVEL 4/2 FINAL DIAGNOSIS 1. Distal esophagus, biopsy: -- Gastroesophageal transition zone mucosa with nonspecific chronic inflammation and reactive glandular and squamous epithelial changes. -- No specific features of reflux esophagitis identified. -- No goblet cell/intestinal metaplasia or dysplasia identified. 2. Esophagus, mid, biopsy: -- Superficial squamous mucosa with mild nonspecific chronic inflammation. -- No evidence of allergic-type/eosinophilic esophagitis identified (0 eosinophils/high power field) CLINICAL HISTORY Dysphagia, gastroesophageal reflux disease POST-OPERATIVE DIAGNOSIS EGD: with dilation; mild trachealization of the esophagus; at gastroesophageal junction, mild stricture, biopsy and dilated 12 ? 15 mm with good effect; biopsy mid to rule out eosinophilic esophagitis; gastric ? normal; duodenum - normal GROSS DESCRIPTION 1. The specimen is received in formalin labeled, Distal Esophagus Biopsy, and consists of two translucent ramirez-white irregular soft tissue fragments measuring 0.2 x 0.2 x 0.1 cm and 0.3 by up to 0.2 x 0.1 cm which are submitted entirely in one cassette. CONTINUED ON NEXT PAGE DEPARTMENT OF PATHOLOGY, [address] [place] [address] Efrain Mondragon M.D. Director [facility] # [id number] RUN DATE: 03/30/18 [facility] LAB LIVE PAGE 2 Patient: CHUNG MUÑOZVALARIELOVELY [id number] (Continued) GROSS DESCRIPTION (Continued) GROSS DESCRIPTION (Continued) 2. The specimen is received in formalin labeled, Mid Esophagus Biopsy, and consists of two translucent ramirez-white irregular soft tissue fragments measuring 0.2 x 0.1 x 0.1 cm and 0.4 x 0.3 x 0.1 cm which are submitted entirely in one cassette. Signed by and Reported on: Efrain Mondragon MD 02/07 1246 END OF REPORT DEPARTMENT OF PATHOLOGY, [address] [place] [address] Efrain Mondragon M.D. Director [facility] # [id number] Procedures Date Code Description Status 07/24/2018 28572920 Colonoscopy Completed 07/08/2018 [id number] Bone Mineral Density Test Completed 07/08/2018 [id number] Mammogram Completed 04/24/2018 25667 Nerve Conduction 05-06 Studies Completed 04/20/2018 67117 Stress Test Completed 04/20/2018 84248 Myocardial Perfusion Imaging Tomographic (Spect) Completed Multiple Studies 03/25/2018 91945 EKG Tracing & Interpretation Completed 02/24/2018 98706 ECHO Transthoracic, Real-Time 2D With Doppler And Completed Color Flow 02/24/2018 74205 ECHO Transthoracic, Real-Time 2D With Doppler And Completed Color Flow 01/14/2018 50922 Endoscopy Upper GI Biopsy Completed Encounters Type Date Location Provider Dx Diagnosis Office Visit 07/03/2018 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 Krupa Marker, G62.1 Alcoholic 10:30a Medicine - [place] [facility] polyneuropathy Rd Z12.31 Encntr screen mammogram for malignant neoplasm of breast Z12.2 Encntr screen for malignant neoplasm of respiratory organs Z13.820 Encounter for screening for osteoporosis M54.5 Low back pain Z23 Encounter for immunization K22.10 Ulcer of esophagus without bleeding K29.00 Acute gastritis without bleeding Office 06/09/2018 [facility] Omer Montalvo G62.1 Alcoholic Visit 9:45a Clinic Eleazar Mattson polyneuropathy H81.10 Benign paroxysmal vertigo, unspecified ear E51.9 Thiamine deficiency, unspecified Office Visit 04/30/2018 8:40a [facility] Internal Gonzalo Sanchez G62.1 Alcoholic Makeda Murrieta M.D.,FACP polyneuropathy [address] I49.8 Other specified cardiac arrhythmias E51.9 Thiamine deficiency, unspecified 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, unspecified Z12.31 Encntr screen mammogram for malignant neoplasm of breast Z12.11 Encounter for screening for malignant neoplasm of colon Z23 Encounter for immunization Office Visit 03/25/2018 9:45a [facility] Johnson Ranjan I49.8 Other specified Of Jami Nevarez M.D., cardiac FACC, FASNC arrhythmias R06.02 Shortness of breath Office Visit 03/18/2018 10:30a [facility] Omer Montalvo R41.3 Other amnesia Clinic Eleazar Mattson H53.2 Diplopia G62.9 Polyneuropathy, unspecified 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, in remission Office Visit 02/12/2018 9:00a [facility] Internal Gonzalo Sanchez E51.9 Thiamine Makeda Murrieta M.D.,FACP deficiency, [address] unspecified G90.09 Other idiopathic peripheral autonomic neuropathy 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, in remission R00.0 Tachycardia, unspecified Office Visit 02/02/2018 11:30a [facility] Amado Cotton E51.9 Thiamine [facility] deficiency, unspecified G90.09 Other idiopathic peripheral autonomic neuropathy K29.00 Acute gastritis without bleeding K22.10 Ulcer of esophagus without bleeding R11.10 Vomiting, unspecified H53.2 Diplopia Office Visit 01/26/2018 7:00a [facility] Leonard Giraldo MD H53.2 Diplopia E51.9 Thiamine deficiency, unspecified G62.9 Polyneuropathy, unspecified F10.20 Alcohol dependence, uncomplicated [facility] Assoc,monroe Davila M.D. without Hospitalists bleeding K22.10 Ulcer of esophagus without bleeding E87.6 Hypokalemia E83.42 Hypomagnesemia I95.1 Orthostatic hypotension Office Visit 01/25/2018 [facility] Acute gastritis Assoc,monroe Davila M.D. without Hospitalists bleeding E87.6 Hypokalemia E83.42 Hypomagnesemia I95.1 Orthostatic hypotension Office Visit 01/25/2018 7:00a [facility] [place] H53.2 Dipldaija Laura M.D. E51.9 Thiamine deficiency, unspecified I95.9 Hypotension, unspecified [facility] Acute gastritis Assoc,monroe Davila M.D. without Hospitalists bleeding E87.6 Hypokalemia E83.42 Hypomagnesemia Office Visit 01/24/2018 7:00a [facility] [place] H53.2 Dipldaija Laura M.D. E51.9 Thiamine deficiency, unspecified Office Visit 01/23/2018 7:00a [facility] [place] H53.2 Dipldaija Laura M.D. E51.9 Thiamine deficiency, unspecified R90.82 White matter disease, unspecified Office Visit 01/22/2018 [facility] Acute gastritis Assoc,monroe Davila M.D. without Hospitalists bleeding E87.6 Hypokalemia E83.42 Hypomagnesemia Office Visit 01/21/2018 11:50a [facility] Magdalena K29.00 Acute gastritis Assoc,monroe Angeles NP without Hospitalists bleeding E87.6 Hypokalemia E83.42 Hypomagnesemia Office Visit 01/20/2018 11:49a [facility] Magdalena K29.00 Acute gastritis Assoc,monroe Angeles NP without Hospitalists bleeding E87.6 Hypokalemia Office Visit 01/19/2018 11:49a [facility] Carmella K22.10 Ulcer of Assoc,monroe Ramey D.O. esophagus Hospitalists without bleeding R11.10 Vomiting, unspecified Office Visit 01/14/2018 [facility] Magdalena K22.2 Esophageal 11:27a Assoc,monroe Angeles NP obstruction Hospitalists R13.14 Dysphagia, pharyngoesophageal phase R63.4 Abnormal weight loss E87.6 Hypokalemia Office 01/13/2018 [facility] Kaila R13.14 Dysphagia, Visit 11:26a Assoc,monroe De Souza pharyngoesophageal Hospitalists KAITLYNN Mensah phase R63.4 Abnormal weight loss E87.6 Hypokalemia Plan of Treatment Future Appointment(s):10/13/2018 8:45 am - Omer Mattson M.D. at [facility]09/21/2018 - María Harding, MDS00.06xA Insect bite ( nonvenomous) of scalp, initial encounterNew Medication:Doxycycline Hyclate 200 mg - take one tablet by mouth
[2018-10-10 08:51] VITALS: BP 137/78
--- NOTE | 2018-10-10 09:05 | UC ---
General HPI - HPI Summary HPI Summary: pt states she thinks she may have shingles. pt has a painful rash to lt lower back starting to come to the front. pt has neuropathy already and her yonathan hurt already. pt states this started around friday. - History of Current Complaint Chief Complaint: Marilyn Stated Complaint: SKIN Time Seen by Provider: 10/10/18 09:04 Hx Obtained From: Patient Pain Intensity: 8 - Allergy/Home Medications Allergies/Adverse Reactions: Allergies Allergy/AdvReac Type Severity Reaction Status Date / Time No Known Allergies Allergy Verified 10/10/18 08:51 PMH/Surg Hx/FS Hx/Imm Hx Previously Healthy: No - neuropathy, former etoh - Surgical History Surgical History: Yes Surgery Procedure, Year, and Place: HYSTERECTOMY, CHOLECYSTECTOMY, FINGER CYST - Family History Known Family History: Positive: Hypertension - Social History Alcohol Use: None Alcohol Amount: 2 GLASSES WINE/DAY Substance Use Type: None Smoking Status (MU): Former Smoker Type: Cigarettes Have You Smoked in the Last Year: No - Immunization History Most Recent Influenza Vaccination: 2018 Most Recent Tetanus Shot: UNSURE ( OF 09/06/15) Most Recent Pneumonia Vaccination: never Review of Systems All Other Systems Reviewed And Are Negative: Yes Constitutional: Positive: Fatigue Skin: Positive: Rash Eyes: Positive: Negative ENT: Positive: Negative Respiratory: Positive: Negative Cardiovascular: Positive: Negative Gastrointestinal: Positive: Negative Genitourinary: Positive: Negative Motor: Positive: Other - see hpi Neurovascular: Positive: Other - see hpi Musculoskeletal: Positive: Other: - see hpi Neurological: Positive: Other - see hpi Psychological: Positive: Negative Is Patient Immunocompromised?: No Physical Exam Triage Information Reviewed: Yes Appearance: Other: - thin but nad. sitting up. Vital Signs: Initial Vital Signs Temp 97.8 F 10/10/18 08:45 Pulse 99 10/10/18 08:45 Resp 18 10/10/18 08:45 BP 137/78 10/10/18 08:45 Pulse Ox 99 10/10/18 08:45 Vital Signs Reviewed: Yes Eye Exam: Normal ENT Exam: Normal Neck exam: Normal - no acute issues Respiratory Exam: Normal Respiratory: Positive: Chest non-tender, Lungs clear, Normal breath sounds, No respiratory distress, No accessory muscle use Cardiovascular Exam: Normal Cardiovascular: Positive: RRR, No Murmur, Pulses Normal Abdominal Exam: Normal Abdomen Description: Positive: Nontender Musculoskeletal Exam: Normal - gait steady, slow. uncomfortable d/t pain Neurological Exam: Other - + hx neuropathy. Detailed distal ext not done. However, see rash. Psychological Exam: Normal - conversing easily and appropriately Skin Exam: Other - Left low back, extending to left groin, does not extend to perineum. C/w shingles. No cellulitis. Redness c/w viral outbreak. Course/Dx - Course Course Of Treatment: Left low back, extending to left groin, does not extend to perineum. C/w shingles. REviewed coa / tx plan. questions as posed answered to the best of my ability. - Diagnoses Provider Diagnosis: Shingles Discharge - Sign-Out/Discharge Documenting (check all that apply): Patient Departure All imaging exams completed and their final reports reviewed: No Studies - Discharge Plan Condition: Stable Disposition: HOME Prescriptions: ValACYclovir (*) [Valtrex 1 GM(*)] 1 gm PO TID #30 tab Patient Education Materials: Christopher (ED) Referrals: Gonzalo Murrieta MD [Primary Care Provider] - Additional Instructions: Follow up with primary care physician - call Friday to schedule appointment for this week. Follow up with your neurologist on Friday as scheduled. Seek medical attention for worse or new problems. - Billing Disposition and Condition Condition: STABLE Disposition: Home
== END 2018-10-10 09:35 | disposition home or self-care (01) ==
LOC: UCEAST 08:40
DX: B02.9 Zoster without complications (principal); R53.83 Other fatigue; G62.9 Polyneuropathy, unspecified; Z87.891 Personal history of nicotine dependence
CPT/HCPCS: 99212; G0463